=== PATIENT | female | born 1985 | race Caucasian/White ===

== ENCOUNTER 2022-04-29 18:06 | Inpatient (IN) | payer OTHER, SELFPAY ==
[2022-04-29] VITALS (11 sets, daily range): BP systolic 102–136; BP diastolic 43–84; PULSE 85–120; TEMP 36.3–36.6; BMI 38.6
--- OUTSIDE RECORDS SUMMARY | 2022-04-29 18:12 | XMS_ITS | Encounter Summary ---
:1985 Author Care Team Providers Name Role Phone Riya Baer MD Primary Care Provider [phone] Reason for Visit None recorded. Assessment and Plan 1. Chronic hypertension complicating AN D/OR reason for care during ? non-stress test Discussion Note: None recorded.Patient educational handouts: No information available. Plan of Care Reminders Provider Appointments Ob Routine 05/01/2022 9:45AM Domenica Charles MD ? Ob Routine 05/08/2022 9:45AM Domenica Charles MD Lab None recorded. ? ? Referral None recorded. ? ? Procedures None recorded. ? ? Surgeries None recorded. ? ? Imaging Non-stress Test 04/17/2022 [place] Medications Name Start Date ? ? labetalol 100 mg tablet ? TAKE 1 TABLET BY MOUTH TWICE DAILY montelukast 10 mg tablet ? TAKE 1 TABLET BY MOUTH ONCE DAILY Vitamin ? Medications Administered None recorded. Vitals None recorded. Results Lab Results None recorded. Allergies Code Code System Name Reaction Severity Onset NKDA ? ? ? Problems Name Status Onset Date Source ? Anxiety Active 05/25/2021 ? Migraine Active 05/25/2021 ? Essential Hypertension Active 05/25/2021 ? Active 11/02/2021 ? Chronic Hypertension in Obstetric Context Active ? ? Procedures Date Name Performed by ? 06/23/2015 Extraction of [place] Tooth Information n ot available 03/20/2022 US, Obstetric, Biophysical Profile + [facility] Non-stress Test 2015 [address]
--- OUTSIDE RECORDS SUMMARY | 2022-04-29 18:12 | XMS_ITS | Encounter Summary ---
:1985 Author Care Team Providers Name Role Phone Riya Baer MD Primary Care Provider [phone] Reason for Visit None recorded. Assessment and Plan 1. Chronic hypertension complicating AN D/OR reason for care during ? US, obstetric, biophysical profile + non-stress test Discussion Note: None recorded.Patient educational handouts: No information available. Plan of Care Reminders Provider Appointments Ob Routine 05/01/2022 Domenica scott MD 9:45AM ? Ob Routine 05/08/2022 Domenica scott MD 9:45AM Lab None recorded. ? ? Referral None recorded. ? ? Procedures None recorded. ? ? Surgeries None recorded. ? ? Imaging US, Obstetric, Biophysical 04/24/2022 [facility] Profile + Non-stress Test Medications Name Start Date ? ? labetalol [...]
--- OUTSIDE RECORDS SUMMARY | 2022-04-29 18:12 | XMS_ITS | Encounter Summary ---
:1985 Author Care Team Providers Name Role Phone Riya Baer MD Primary Care Provider [phone] Reason for Visit None recorded. Assessment and [...] None recorded. ? ? Imaging Non-stress Test 04/10/2022 [place] Medications Name Start Date ? ? labetalol [...] Performed by ? 06/23/2015 Extraction of [place] Tooth Information n ot available 03/13/2022 US, Obstetric, Follow-up [place] [address] [address]
--- OUTSIDE RECORDS SUMMARY | 2022-04-29 18:12 | XMS_ITS | Encounter Summary ---
:1985 Author Care Team Providers Name Role Phone Riya Baer MD Primary Care Provider [phone] Reason for Visit OB visit OB [id number] EDC 05/13/2022 LMP 08/06/2021 Assessment and Plan Assessment Note Patient is __33_weeks . Discuss ed plan. 1. Routine care Discussion Note: None recorded.Patient educational handouts: No information available. Plan of Care Reminders Provider Appointments Ob Routine 05/01/2022 9:45AM Domenica Charles MD ? Ob Routine 05/08/2022 9:45AM Domenica Charles MD Lab None recorded. ? ? Referral None recorded. ? ? Procedures None recorded. ? ? Surgeries None recorded. ? ? Imaging None recorded. ? ? Medications Name Start Date ? ? labetalol 100 mg tablet ? TAKE 1 TABLET BY MOUTH TWICE DAILY montelukast 10 mg tablet ? TAKE 1 TABLET BY MOUTH ONCE DAILY Vitamin ? Medications Administered None recorded. Vitals Height Weight BMI Blood Pressure 5 ft 3 in 226 lbs 40 kg/m2 107/71 mm[Hg] Results Lab Results None recorded. Allergies Code Code System Name Reaction Severity Onset NKDA ? ? ? Problems Name Status Onset Date Source ? Anxiety Active 05/25/2021 ? Migraine Active 05/25/2021 ? Essential Hypertension Active 05/25/2021 ? Active 11/02/2021 ? Chronic Hypertension in Obstetric Context Active ? ? Procedures Date Name Performed by
--- OUTSIDE RECORDS SUMMARY | 2022-04-29 18:12 | XMS_ITS | Encounter Summary ---
:1985 Author Care Team Providers Name Role Phone Riya Baer MD Primary Care Provider [phone] Reason for Visit OB visit Assessment and Plan 1. Chronic hypertension in obstetric co ntext Discussion Note: None recorded.Patient educational handouts: No [...] BMI Blood Pressure 5 ft 3 in 227 lbs 40.2 kg/m2 116/76 mm[Hg] Results Lab Results None recorded. Allergies Code Code System Name Reaction Severity Onset NKDA ? ? ? Problems Name Status Onset Date Source ? Anxiety Active 05/25/2021 ? Migraine Active 05/25/2021 ? Essential Hypertension Active 05/25/2021 ? Active 11/02/2021 ? Chronic Hypertension in Obstetric Context Active ? ? Procedures Date Name Performed by ? 06/23/2015 Extraction of [place] Tooth Information n ot available 03/27/2022 US, Obstetric, Biophysical Profile + Cindy toro
--- OUTSIDE RECORDS SUMMARY | 2022-04-29 18:12 | XMS_ITS | Encounter Summary ---
:1985 Author Care Team Providers Name Role Phone Riya Baer MD Primary Care Provider [phone] Reason for Visit None recorded. Assessment and [...] None recorded. ? ? Imaging Non-stress Test 04/24/2022 [place] Medications Name Start Date ? ? labetalol [...] Name Performed by ? 06/23/2015 Extraction of [place] Tooth Information n ot available 03/27/2022 US, Obstetric, Biophysical Profile + [facility] Non-stress Test 2015 [address]
--- OUTSIDE RECORDS SUMMARY | 2022-04-29 18:12 | XMS_ITS ---
:1985 Author Care Team Providers Name Role Phone HARIS BATEMAN MD Primary Care Provider [phone] Allergies Code Code System Name Reaction Severity Status Onset NKDA ? Medications Name Status Start Date Stop Date ? ? atorvastatin 20 mg tablet Completed ? 2021 baclofen Completed ? 09/28/2021 baclofen 10 mg tablet Completed ? 11/02/2021 Imitrex Completed ? 09/28/2021 Imitrex 100 mg tablet Completed ? 11/02/2021 labetalol 100 mg tablet Active ? Not avai lable montelukast 10 mg tablet Active ? Not roslyn ilable nortriptyline 25 mg capsule Completed ? 01/2022 TAKE 1 CAPSULE BY MOUTH AT BEDTIME nortriptyline 50 mg capsule Completed ? 10/21 Vitamin Active ? Not available Sprintec (28) 0.25 mg-35 mcg tablet Completed ? 11/02/2021 Problems Name Status Onset Date Source ? Anxiety Active 05/25/2021 ? Migraine Active 05/25/2021 ? Essential Hypertension Active 05/25/2021 ? Active 11/02/2021 ? Chronic Hypertension in Obstetric Context Active ? ? Procedures Date Name Performed by ? 06/23/2015 Extraction of [place] Tooth Information n ot available 11/02/2021 US, Obstetric, Nuchal Translucency Jocelyn jones [address] [place] [address] ([address]) 12/31/2021 US, Obstetric, 2Nd or 3Rd Trimester Irais tobin [address] [place] [address]
--- OUTSIDE RECORDS SUMMARY | 2022-04-29 18:12 | XMS_ITS | Encounter Summary ---
:1985 Author Care Team Providers Name Role Phone Riya Baer MD Primary Care Provider [phone] Reason for Visit None recorded. Assessment and [...] None recorded. ? ? Imaging Non-stress Test 04/03/2022 [place] Medications Name Start Date ? ? labetalol [...] Name Performed by ? 06/23/2015 Extraction of [place] Tooth Information n ot available 03/13/2022 US, Obstetric, Follow-up [place] [address] [address]
--- OUTSIDE RECORDS SUMMARY | 2022-04-29 18:12 | XMS_ITS | Encounter Summary ---
:1985 Author Care Team Providers Name Role Phone Riya Baer MD Primary Care Provider [phone] Reason for Visit None recorded. Assessment and [...] None recorded. ? ? Imaging Non-stress Test 03/27/2022 [place] Medications Name Start Date ? ? labetalol [...] Name Performed by ? 06/23/2015 Extraction of [place] Tooth Information n ot available 03/13/2022 , Obstetric, Follow-up [place] [address] [address]
--- OUTSIDE RECORDS SUMMARY | 2022-04-29 18:12 | XMS_ITS | Encounter Summary ---
:1985 Author Care Team Providers Name Role Phone Riya Baer MD Primary Care Provider [phone] Reason for Visit OB visit Assessment and [...] BMI Blood Pressure 5 ft 3 in 224 lbs 39.7 kg/m2 125/87 mm[Hg] Results Lab Results None recorded. Allergies Code Code System Name Reaction Severity Onset NKDA ? ? ? Problems Name Status Onset Date Source ? Anxiety Active 05/25/2021 ? Migraine Active 05/25/2021 ? Essential Hypertension Active 05/25/2021 ? Active 11/02/2021 ? Chronic Hypertension in Obstetric Context Active ? ? Procedures Date Name Performed by ? 06/23/2015 Extraction of [place] Tooth Information n ot available 03/13/2022 , Obstetric, Follow-up [place]
--- OUTSIDE RECORDS SUMMARY | 2022-04-29 18:12 | XMS_ITS | Encounter Summary ---
:1985 Author Care Team Providers Name Role Phone Riya Baer MD Primary Care Provider [phone] Reason for Visit None recorded. Assessment and Plan 1. Chronic hypertension complicating AN D/OR reason for care during ? US, obstetric, follow-up ? US, obstetric, biophysical profile + non-stress test Discussion Note: None recorded.Patient educational handouts: No information available. Plan of Care Reminders Provider Appointments Ob Routine 05/01/2022 Domenica scott MD 9:45AM ? Ob Routine 05/08/2022 Domenica scott MD 9:45AM Lab None recorded. ? ? Referral None recorded. ? ? Procedures None recorded. ? ? Surgeries None recorded. ? ? Imaging US, Obstetric, Follow-up 04/10/2022 [place] ? US, Obstetric, Biophysical 04/10/2022 [facility]o Profile + Non-stress Test Medications Name Start [...] Active 11/02/2021 ? Chronic Hypertension in Obstetric Cont
--- OUTSIDE RECORDS SUMMARY | 2022-04-29 18:12 | XMS_ITS | Encounter Summary ---
:1985 Author Care Team Providers Name Role Phone Riya Baer MD Primary Care Provider [phone] Reason for Visit None recorded. Assessment and [...] recorded. ? ? Imaging US, Obstetric, Biophysical 03/27/2022 [facility] Profile + Non-stress Test Medications Name Start [...]
--- OUTSIDE RECORDS SUMMARY | 2022-04-29 18:12 | XMS_ITS | Encounter Summary ---
:1985 Author Care Team Providers Name Role Phone Riya Baer MD Primary Care Provider [phone] Reason for Visit None recorded. Assessment and [...] recorded. ? ? Imaging US, Obstetric, Biophysical 04/03/2022 [facility] Profile + Non-stress Test Medications Name Start [...]
--- OUTSIDE RECORDS SUMMARY | 2022-04-29 18:12 | XMS_ITS | Encounter Summary ---
:1985 Author Care Team Providers Name Role Phone Riya Baer MD Primary Care Provider [phone] Reason for Visit OB visit Assessment and Plan 1. Chronic hypertension in obstetric co ntext 2. Routine care Discussion Note: None recorded.Patient educational [...] ft 3 in 227 lbs 40.2 kg/m2 107/72 mm[Hg] Results Lab Results None recorded. Allergies Code Code System Name Reaction Severity Onset NKDA ? ? ? Problems Name Status Onset Date Source ? Anxiety Active 05/25/2021 ? Migraine Active 05/25/2021 ? Essential Hypertension Active 05/25/2021 ? Active 11/02/2021 ? Chronic Hypertension in Obstetric Context Active ? ? Procedures Date Name Performed by ? 06/23/2015 Extraction of [place] Tooth Information n ot available 03/13/2022 US,
--- OUTSIDE RECORDS SUMMARY | 2022-04-29 18:12 | XMS_ITS | Encounter Summary ---
:1985 Author Care Team Providers Name Role Phone Riya Baer MD Primary Care Provider [phone] Reason for Visit None recorded. Assessment and [...] recorded. ? ? Imaging US, Obstetric, Biophysical 04/17/2022 [facility] Profile + [...]
--- OUTSIDE RECORDS SUMMARY | 2022-04-29 18:12 | XMS_ITS | Encounter Summary ---
:1985 Author Care Team Providers Name Role Phone Riya Baer MD Primary Care Provider [phone] Reason for Visit OB visit Assessment and [...] BMI Blood Pressure 5 ft 3 in 228 lbs 40.4 kg/m2 115/75 mm[Hg] Results Lab Results None recorded. Allergies Code Code System Name Reaction Severity Onset NKDA ? ? ? Problems Name Status Onset Date Source ? Anxiety Active 05/25/2021 ? Migraine Active 05/25/2021 ? Essential Hypertension Active 05/25/2021 ? Active 11/02/2021 ? Chronic Hypertension in Obstetric Context Active ? ? Procedures Date Name Performed by ? 06/23/2015 Extraction of [place] Tooth Information n ot available 03/13/2022 , Obstetric, Follow-up [place]
--- OUTSIDE RECORDS SUMMARY | 2022-04-29 18:12 | XMS_ITS | Encounter Summary ---
:1985 Author Care Team Providers Name Role Phone Riya Baer MD Primary Care Provider [phone] Reason for Visit OB visit Assessment and [...] ft 3 in 228 lbs 40.4 kg/m2 107/73 mm[Hg] Results Lab Results None recorded. Allergies Code Code System Name Reaction Severity Onset NKDA ? ? ? Problems Name Status Onset Date Source ? Anxiety Active 05/25/2021 ? Migraine Active 05/25/2021 ? Essential Hypertension Active 05/25/2021 ? Active 11/02/2021 ? Chronic Hypertension in Obstetric Context Active ? ? Procedures Date Name Performed by ? 06/23/2015 Extraction of [place] Tooth Information n ot available 03/20/2022 US, Obstetric, Biophysical Profile + [facility] toro
--- OUTSIDE RECORDS SUMMARY | 2022-04-29 18:13 | XMS_ITS | Encounter Summary ---
:1985 Author Care Team Providers Name Role Phone Riya Baer MD Primary Care Provider [phone] Reason for Visit None recorded. Assessment and [...] None recorded. ? ? Imaging Non-stress Test 03/20/2022 [place] Medications Name Start Date ? ? labetalol [...] Name Performed by ? 06/23/2015 Extraction of [place] Tooth Information n ot available 03/13/2022 US, Obstetric, Follow-up [place] [address] [address]
--- OUTSIDE RECORDS SUMMARY | 2022-04-29 18:13 | XMS_ITS | Encounter Summary ---
:1985 Author Care Team Providers Name Role Phone Riya Baer MD Primary Care Provider [phone] Reason for Visit None recorded. Assessment and Plan 1. Chronic hypertension complicating AN D/OR reason for care during ? US, obstetric, follow-up Discussion Note: None recorded.Patient educational handouts: No information available. Plan of Care Reminders Provider Appointments Ob Routine 05/01/2022 9:45AM Domenica Charles MD ? Ob Routine 05/08/2022 9:45AM Domenica Charles MD Lab None recorded. ? ? Referral None recorded. ? ? Procedures None recorded. ? ? Surgeries None recorded. ? ? Imaging US, Obstetric, Follow-up 03/13/2022 J[facility] j[place] Medications Name Start Date ? ? labetalol [...] Procedures Date Name Performed by ? 06/23/2015 Ex
--- OUTSIDE RECORDS SUMMARY | 2022-04-29 18:13 | XMS_ITS | Encounter Summary ---
:1985 Author Care Team Providers Name Role Phone Riya Baer MD Primary Care Provider [phone] Reason for Visit None recorded. Assessment and [...] recorded. ? ? Imaging US, Obstetric, Follow-up 02/15/2022 Joc[facility] j[place] Medications Name Start Date ? [...] Procedures Date Name Performed by ? 06/23/2015 Extr
--- OUTSIDE RECORDS SUMMARY | 2022-04-29 18:13 | XMS_ITS | Encounter Summary ---
:1985 Author Care Team Providers Name Role Phone Riya Baer MD Primary Care Provider [phone] Reason for Visit OB visit Assessment and Plan 1. Routine care 2. Chronic hypertension in obstetric co ntext Discussion [...] BMI Blood Pressure 5 ft 3 in 211 lbs 37.4 kg/m2 123/85 mm[Hg] Results Lab Results None recorded. Allergies Code Code System Name Reaction Severity Onset NKDA ? ? ? Problems Name Status Onset Date Source ? Anxiety Active 05/25/2021 ? Migraine Active 05/25/2021 ? Essential Hypertension Active 05/25/2021 ? Active 11/02/2021 ? Chronic Hypertension in Obstetric Context Active ? ? Procedures Date Name Performed by ? 06/23/2015 Extraction of [place] Tooth Information n ot available Vaccine List None recorded.
--- OUTSIDE RECORDS SUMMARY | 2022-04-29 18:13 | XMS_ITS | Encounter Summary ---
:1985 Author Care Team Providers Name Role Phone Riya Baer MD Primary Care Provider [phone] Reason for Visit None recorded. Assessment and [...] recorded. ? ? Imaging US, Obstetric, Biophysical 03/20/2022 [facility] Profile + Non-stress Test Medications Name Start [...]
--- OUTSIDE RECORDS SUMMARY | 2022-04-29 18:13 | XMS_ITS | Encounter Summary ---
:1985 Author Care Team Providers Name Role Phone Riya Baer MD Primary Care Provider [phone] Reason for Visit OB visit Assessment and [...] BMI Blood Pressure 5 ft 3 in 216 lbs 38.3 kg/m2 116/78 mm[Hg] Results Lab Results None recorded. Allergies Code Code System Name Reaction Severity Onset NKDA ? ? ? Problems Name Status Onset Date Source ? Anxiety Active 05/25/2021 ? Migraine Active 05/25/2021 ? Essential Hypertension Active 05/25/2021 ? Active 11/02/2021 ? Chronic Hypertension in Obstetric Context Active ? ? Procedures Date Name Performed by ? 06/23/2015 Extraction of [place] Tooth Information n ot available 02/15/2022 US, O
--- OUTSIDE RECORDS SUMMARY | 2022-04-29 18:13 | XMS_ITS | Encounter Summary ---
:1985 Author Care Team Providers Name Role Phone Riya Baer MD Primary Care Provider [phone] Reason for Visit OB visit Assessment and [...] BMI Blood Pressure 5 ft 3 in 219 lbs 38.8 kg/m2 122/86 mm[Hg] Results Lab Results None recorded. Allergies Code Code System Name Reaction Severity Onset NKDA ? ? ? Problems Name Status Onset Date Source ? Anxiety Active 05/25/2021 ? Migraine Active 05/25/2021 ? Essential Hypertension Active 05/25/2021 ? Active 11/02/2021 ? Chronic Hypertension in Obstetric Context Active ? ? Procedures Date Name Performed by ? 06/23/2015 Extraction of [place] Tooth Information n ot available 02/15/2022 US,
--- OUTSIDE RECORDS SUMMARY | 2022-04-29 18:13 | XMS_ITS | Encounter Summary ---
:1985 Author Care Team Providers Name Role Phone Riya Baer MD Primary Care Provider [phone] Reason for Visit OB visit OB [id number] EDC 05/13/2022 LMP Assessment and Plan Assessment Note Patient is _31__weeks . Discuss ed plan. 1. Routine care [...] BMI Blood Pressure 5 ft 3 in 221 lbs 39.1 kg/m2 109/70 mm[Hg] Results Lab Results None recorded. Allergies Code Code System Name Reaction Severity Onset NKDA ? ? ? Problems Name Status Onset Date Source ? Anxiety Active 05/25/2021 ? Migraine Active 05/25/2021 ? Essential Hypertension Active 05/25/2021 ? Active 11/02/2021 ? Chronic Hypertension in Obstetric Context Active ? ? Procedures Date Name Performed by ?
--- NOTE | 2022-04-29 18:45 | LDADM ---
This patient, Amy Mcclendon, was admitted to Labor/Delivery/Recovery 108 on 04/29/22 at 18:06. Plans for labor, pain management and were discussed with patient. Patient/family oriented to hospital policies and general routines including ID bracelet, bed and alarms, visiting hours, pain management, procedures, bathroom and other care routines, personal items, smoking policy, room service/diet and guest tray routines, infant security routines, and visiting hours. Patient/Family are encouraged to report perceived risks to care and to ask questions if they do not understand what they are told or what they should do. See OBIX for further documentation.
--- NOTE | 2022-04-29 19:32 | WPDANESEPP ---
Anes - Eval Pre Procedure Procedure: labor epidural Date/Time: 04/29/22 19:32 Surgeon: shereen Preop Diagnosis: pain during labor Pre Op Diagnosis: Induction of Labor Patient Data Age: 36 Gender: F Height: 1.6 m Weight: 99 kg Last Vital Signs Pulse 96 04/29/22 19:31 BP 119/72 04/29/22 19:31 O2 Del Method Room Air 04/29/22 18:44 Allergies Allergy/AdvReac Type Severity Reaction Status Date / Time No Known Allergies Allergy Verified 04/12/22 12:36 Home Medications Medication Instructions Recorded Confirmed Type aspirin 81 mg tablet,delayed 81 mg PO DAILY 04/12/22 04/12/22 History release (Donna Low Dose Aspirin) ferrous sulfate 142 mg (45 mg 142 mg PO DAILY 04/12/22 04/12/22 History iron) tablet,extended release labetalol 100 mg tablet 100 mg PO Q12H 04/12/22 04/12/22 History montelukast 10 mg tablet 10 mg PO DAILY 04/12/22 04/12/22 History prenat.vits,venkatesh,wbz-dvnp-vjezc 1 tablet PO DAILY 04/12/22 04/12/22 History Patient hx anesthesia problems: none Family hx anesthesia problems: none Results Review: All pre-operative results and documents have been reviewed as part of the pre-operative evaluation. [facility] Past Medical History Medical History (Updated 04/29/22 @ 19:34 by Ruth Ann Loredo CRNA) HTN (hypertension) IUP (intrauterine ), incidental Obesity Family History Family History (Updated 04/12/22 @ 12:44 by Lola Becerra RN) Mother Borderline diabetes Hypertension High cholesterol Social History Social History Smoking status: Former smoker Substance use: never Has the Lack of Transportation Kept You From Medical Appointments or From Getting Medications?: No Within the Past 12 Months, Were You Worried Whether Your Food Would Run Out Before You Got Money to Buy More?: Never True What is Your Housing Situation Today?: I Have Housing Are You Worried That in the Next 2 Months, You May Not Have Your Own Housing to Live In?: No Do You Have Trouble Paying Your Heating Or Electricity Bill?: No Do You Have Trouble Paying For Medicines?: No Are You Currently Unemployed and Looking for Work?: No Highest Level of Education Completed: High School Diploma/GED Do You Have Trouble With Childcare or the Care of a Family Member?: No Spiritual care concerns: No Exam Day of Procedure 04/29/22 19:32
[2022-04-29 19:38] LABS: Basophils Absolute Auto 0.1 K/mm3 (0.0-0.1); Basophils Percent Auto 0.4 % (0.2-1.2); Eosinophils Absolute Auto 0.2 K/mm3 (0-0.3); Eosinophils Percent Auto 1.4 % (0-4.4); Hemoglobin 11.7 g/dL (12.0-15.0); Immature Granulocyte Absolute 0.35 K/mm3 (0.00-0.031); Immature Granulocyte Percent A 2.6 % (0-0.5); Lymphocytes Absolute Auto 1.57 K/mm3 (0.9-3.2); Lymphocytes Percent Auto 11.5 % (18.3-44.2); Mean Corpuscular HGB Conc 32.5 g/dl (32-36); Mean Corpuscular Hemoglobin 29.2 pg (26-34); Mean Corpuscular Volume 89.8 fl (80-100); Mean Platelet Volume 11.4 fl (7.4-10.4); Monocytes Absolute Auto 1.1 K/mm3 (0.1-0.6); Neutrophils Absolute Auto 10.4 K/mm3 (1.3-6.7); Neutrophils Percent Auto 76.1 % (45.5-73.1); Platelet Count Result 201 k/mm3 (150-375); Red Blood Count 4.01 M/mm3 (4.2-5.4); Red Cell Distribution Width 13.5 % (11.5-14.5); White Blood Count 13.6 K/mm3 (4.5-10.0)
[2022-04-29] MEDS: miSOPROStol 25 MCG TABLET VAGINAL (19:50)
[2022-04-30] VITALS (54 sets, daily range): BP systolic 90–136; BP diastolic 53–99; PULSE 80–166; RESP 18; TEMP 36.3–37.1; O2SAT 97–99
[2022-04-30] MEDS: LACTATED RINGERS 1,000 ML 125 ML IV CONT ×2 (00:50→04:40)
[2022-04-30] MEDS: OXYTOCIN 30 UNITS/NS 500 ML 30 UNITS/500 ML BAG IV CONT (00:50)
--- NOTE | 2022-04-30 06:56 | PM.IMHP ---
H&P: HPI History of Present Illness Date/Time: 04/30/22 06:56 Chief Complaint: induction of labor Narrative: Amy is a 36yo at 38.1 for IOL cHTN on labetalol. Last 10yr ago, baby adopted out. otherwise uncomplicated. BPs well controlled. on iron. Review of Systems Review of Systems: All systems reviewed & are unremarkable except as noted in HPI and below PMFSH Past Medical History Medical History (Updated 04/30/22 @ 06:57 by Domenica Charles MD) HTN (hypertension) IUP (intrauterine ), incidental Obesity Family History Family History (Updated 04/12/22 @ 12:44 by Lola Becerra RN) Mother Borderline diabetes Hypertension High cholesterol Social History Social History Smoking status: Former smoker Substance use: never Has the Lack of Transportation Kept You From Medical Appointments or From Getting Medications?: No Within the Past 12 Months, Were You Worried Whether Your Food Would Run Out Before You Got Money to Buy More?: Never True What is Your Housing Situation Today?: I Have Housing Are You Worried That in the Next 2 Months, You May Not Have Your Own Housing to Live In?: No Do You Have Trouble Paying Your Heating Or Electricity Bill?: No Do You Have Trouble Paying For Medicines?: No Are You Currently Unemployed and Looking for Work?: No Highest Level of Education Completed: High School Diploma/GED Do You Have Trouble With Childcare or the Care of a Family Member?: No Spiritual care concerns: No Meds Home Medications and Allergies Home Medications Medication Instructions Recorded Confirmed Type aspirin 81 mg tablet,delayed 81 mg PO DAILY 04/12/22 04/12/22 History release (Donna Low Dose Aspirin) ferrous sulfate 142 mg (45 mg 142 mg PO DAILY 04/12/22 04/12/22 History iron) tablet,extended release labetalol 100 mg tablet 100 mg PO Q12H 04/12/22 04/12/22 History montelukast 10 mg tablet 10 mg PO DAILY 04/12/22 04/12/22 History prenat.vits,venkatesh,agu-elfo-smpdt 1 tablet PO DAILY 04/12/22 04/12/22 History Allergies Allergy/AdvReac Type Severity Reaction Status Date / Time No Known Allergies Allergy Verified 04/12/22 12:36 Vital Signs Vital Signs - 24 hr 04/29/22 18:21 11/07/22 19:31 04/29/22 18:23 Temperature 97.9 F Pulse Rate 120 H 96 Blood Pressure 136/84 119/72 Oxygen Delivery 04/29/22 20:01 04/29/22 20:30 04/29/22 21:00 Temperature Pulse Rate 96 98 96 Blood Pressure 115/68 118/81 113/74 Oxygen Delivery 04/29/22 21:31 04/29/22 22:00 04/29/22 22:30 Temperature 97.4 F L Pulse Rate 90 92 89 Blood Pressure 102/43 L 111/70 111/65 Oxygen Delivery 04/29/22 23:01 04/29/22 23:31 04/30/22 00:01 Temperature Pulse Rate 91 85 87 Blood Pressure 115/67 105/68 103/65 Oxygen Delivery 04/30/22 00:30 04/30/22 01:01 04/30/22 01:30 Temperature 97.3 F L Pulse Rate 92 96 84 Blood Pressure 114/75 108/62 117/72 Oxygen Delivery 04/30/22 02:00 04/30/22 02:31 04/30/22 03:01 Temperature Pulse Rate 83 83 80 Blood Pressure 109/73 110/68 107/72 Oxygen Delivery 04/30/22 03:31 04/30/22 04:01 04/30/22 04:41 Temperature Pulse Rate 80 80 85 Blood Pressure 103/69 110/70 116/73 Oxygen Delivery 04/30/22 04:30 04/30/22 05:00 04/30/22 05:30 Temperature 97.5 F L Pulse Rate 80 86 Blood Pressure 111/76 115/69 Oxygen Delivery 04/30/22 06:00 04/30/22 06:31 04/29/22 18:44 Temperature Pulse Rate 86 80 Blood Pressure 120/79 110/69 Oxygen Delivery Room Air Exam Const: General: no acute distress Resp: Effort & Inspection: normal respiratory effort Auscultation: clear to auscultation bilaterally Cardio: Rate: regular rate Rhythm: regular rhythm GI: GI Palp: Yes Soft to palpation Extrem: General: normal to inspection H&P: Results Labs Labs: Short CBC 04/29/22 Range/Units 18:53 WBC 13.6 H (4.5-10.0) K/mm3 Hgb 11.7 L
--- NOTE | 2022-04-30 15:11 | PM.OBPRVD ---
OB - Delivery Note Procedure Delivery date: 04/30/22 Procedure: Events: Chronic Hypertension Induction method: AROM, Per Misoprostol Protocol and Per Pitocin Protocol Delivery monitor: External FHT and Internal Uterine Route of delivery: Laceration Description: Perineal - 2nd Degree Delivery repair: vicryl Quantitative Blood Loss (ml): 130 Anesthesia type: None Disposition: Floor Narrative: With adequate expulsive efforts by the mother, the baby's head was delivered straight OP. The baby's anterior shoulder was delivered under the pubic symphysis without difficulty. The posterior shoulder and the rest of the baby delivered without difficulty. The was placed on the mothers chest and suctioned and stimulated. The cord was clamped and cut after 30 seconds. Mother and baby both stable. [place] Baby Date of : 04/30/22 Time of : 14:42 Weeks of gestation at delivery: 38 gender: Female Weight (pounds): 6 Weight (ounces): 7 presentation: vertex Placenta delivery description: Spontaneous Cord Vessel Description: 3 Vessels, Nuchal Cord and Delayed Cord Clamping score one minute: 8 score five minutes: 9
[2022-04-30] MEDS: IBUPROFEN 600 MG TABLET PO ×2 (16:16→22:17)
--- NOTE | 2022-04-30 17:27 | OBPPTRN ---
1727 Patient transferred to post room #290 via W/C. Support person present. Oriented to unit, room, information board, rooming in, admission packet and security measures. Patient verbalizes understanding.
[2022-04-30] MEDS: ACETAMINOPHEN 325 MG TABLET 650 MG PO (18:54)
[2022-04-30] MEDS: LANOLIN (LANSINOH) 7.5 GM CREAM 1 APPLIC TOPICAL (19:00)
[2022-04-30] MEDS: DIBUCAINE 1% OINTMENT 30 GM TUBE 1 APPLIC TOPICAL (19:00)
[2022-05-01 00:05] VITALS: BP 115/76; PULSE 90; RESP 16; TEMP 36.7; O2SAT 98
[2022-05-01] MEDS: ACETAMINOPHEN 325 MG TABLET 650 MG PO ×3 (03:23→19:23)
[2022-05-01 03:30] VITALS: BP 111/77; PULSE 88; RESP 16; TEMP 36.6; O2SAT 96
[2022-05-01 05:14] LABS: Hematocrit 33.7 % (37.0-47.0)
--- NOTE | 2022-05-01 07:04 | PM.OBPNVD ---
OB - PN: Subj Subjective Date/time seen: 05/01/22 07:04 Patient comments: no complaints and pain well controlled baby status: doing well and nursing well [place] feeding status: exclusively breast feeding Narrative: BPS 110s/70s did not restart labetalol. OB - PN: Obj Data Labs CBC & Chem 7: 05/01/22 03:30 Labs: Laboratory Results - last 24 hr 05/01/22 03:30 Hgb 11.0 L Hct 33.7 L OB - PN A/P Plan day: 1 Plan: routine care Comments: did not restart labetalol with BPs in very normal range. will check BPs at home a couple times per week and call if high. home tomorrow. Time Spent With Patient Time: Total time spent is greater than 50% in coordination of care (as documented) at patient's floor/unit and/or counseling patient: Time with patient: less than 15 minutes Exam Narrative: NAD abdomen soft, nontender, fundus firm below the umbilicus Extremities nontender, 1+ edema
[2022-05-01 09:00] VITALS: BP 126/87; PULSE 90; TEMP 36.6; O2SAT 97
[2022-05-01] MEDS: MULTIVIT/MIN/PREN/FOL AC/IRON TABLET 1 TAB PO (09:00)
[2022-05-01] MEDS: DOCUSATE SODIUM 100 MG CAPSULE PO ×2 (09:01→16:48)
[2022-05-01] MEDS: IBUPROFEN 600 MG TABLET PO ×3 (09:01→23:35)
[2022-05-01 11:35] VITALS: BP 98/59; PULSE 99; RESP 16; TEMP 37.4; O2SAT 98
--- NOTE | 2022-05-01 12:20 | PC.NURSE ---
[id number] Introductions were made, then consulted with patient to assess needs related to . Mother led the conversation with her?plans to feed?her infant and the?experience so far. Resources provided for inpatient and outpatient services using a resource guide and mom/baby guide. Mother voiced understanding of information and requests assistance. Mother works well with her with encouragement and education. Encouraged understanding of the benefits of skin to skin (unwrapping and placing vertically on her chest), responsive feeding and how to watch for early feeding signs, frequency of feeding on demand about every 8-12 times in 24 hours (every 2-3 hours), milk production, duration of feeding, signs of adequate intake/output and how to record on the feeding sheet. Reviewed positioning and ear, shoulder, hip alignment, supporting the breast, asymmetrical latch (off-center), and leading with the chin with a big open side gape. latched optimally to the right breast in football position. Education given to mother of how to visualize suck/swallow ratios and drinking at the breast. Infant was able to maintain latch without discomfort to mother, however, infant was detached due to latch less than 90 degrees and the nipple is seen just inside the mouth. Nipple care reviewed with optimal latch and good positioning. Attempted to latch infant to the left breast using football positioning and mother holding the breast to encouraged the nipple to [place]. Mother states the latch doesn't hurt. Infant detached due to the latch less than 90 degrees and the nipple is misshaped. Infant's tongue is pulled in the middle when it is lifted up. After practicing does stretch the tongue out over the gumline at time. Reviewed good handwashing when or touching the breast/nipples to prevent infection. Resources used to facilitate learning were used with the tool and mom/baby guide. Mother voiced understanding of responsive feedings, stimulating with skin to skin, hand expressed colostrum, massage touch, talking to to encourage if it has been 2 -3 hours since the start of the last , to call if does not latch or there is discomfort with . Dr. Beyer enters the room for an infant assessment. Reported to the primary RN. [id number] Consulted with parent on feeding and initiating pumping related to infant ineffectively feeding at times. Mother works well with her practicing latching optimally to the breast. When infant becomes tired and lets go of the breast or is unable to maintain latching, then mother removes infant from the breast and attempts a better latch. Mother states the latching doesn't hurt. When comes off of the breast the nipple is less misshaped after practicing more. Breast pump provided due to ineffective feeding. Instructions given on cleaning, care, usage, that there should be no pain, pumping schedule for milk production, collection, storage of human milk, and the risk and benefits. Parents are encouraged to record pumping schedule on the feeding sheet. Patient was assessed for correct placement, flange size, to pump for comfort and nipple stretching/stimulation for adequate milk production every 3 hours (8 times in 24 hours). Discussed the risk and benefits of using a nipple shield, how to know if is latched well, getting enough using the pie demonstration, and encouraged practicing stretching infant's frenulum since there would not be an ENT coming to the hospital this visit to perform a frenulectomy. Primary RN has consulted Dr. Homer Manzano MD. Fathers questions and concerns were addressed and they were encourage to ask questions if they needed clarity. Parents voiced understanding of the education shared along with mom and baby guide for additional resource information. Mother continues to work well with her on effectively
[2022-05-01 16:17] LABS: Rapid Plasma Reagin Non-Reactive (NonReactive)
[2022-05-01 19:10] VITALS: BP 105/63; PULSE 92; RESP 18; TEMP 36.7; O2SAT 96
[2022-05-02] MEDS: ACETAMINOPHEN 325 MG TABLET 650 MG PO (03:17)
--- NOTE | 2022-05-02 04:14 | PC.NURSE ---
Attempted to assist mother with 0315 feeding again. Mother seems to be having a difficult time positioning independently using football or cross cradle hold on the the right breast. Left nipple remains sore and she declines wanting to attempt using it at this time. Mother states it is hurting her wrist to support infant's head. Provided more pillows to aide in support. showing feeding cues and is having a difficult time achieving an asymmetrical latch. After about 15 minutes of attempting, mother requesting to supplement infant with formula via syringe again. Mother pumped x 15 minutes which resulted in about 2 drops of colostrum in flanges. Encouraged hand expression prior to initiating pumping and after pumping session complete to promote supply. noted to curl tongue around syringe and is unable to thrust tongue past the gumline.
[2022-05-02 07:25] VITALS: BP 117/66; PULSE 93; RESP 16; TEMP 37.4; O2SAT 98
[2022-05-02 08:00] VITALS: PULSE 93; RESP 16; O2SAT 98
--- NOTE | 2022-05-02 08:18 | PM.OBPNVD ---
OB - PN: Subj Subjective Date/time seen: 05/02/22 08:18 Patient comments: no complaints, pain well controlled and tolerating diet OB - PN: Obj Data Labs CBC & Chem 7: 05/01/22 03:30 Labs: Laboratory Results - last 24 hr 04/29/22 18:54 RPR Non-reactive OB - PN A/P Plan day: 2 Plan: routine care and discharge home Time Spent With Patient Time: Total time spent is greater than 50% in coordination of care (as documented) at patient's floor/unit and/or counseling patient: Exam Const: General: comfortable and no acute distress Resp: Effort & Inspection: normal respiratory effort Auscultation: no rales, no rhonchi and no wheezes Cardio: Rate: regular rate Heart sounds: no click, no murmurs and no rubs GI: GI Palp: Yes Soft to palpation and No Tenderness to palpation present (GI) Auscultation: normal bowel sounds Extrem: General: normal to inspection, no pedal edema and no calf tenderness
--- NOTE | 2022-05-02 08:21 | PM.OBDSVD ---
DS: Admitting Diagnosis Discharge Date 05/02/22 Admitting Diagnosis term OB - DS: Summary OB Procedures : NST and Ultrasound OB Procedures Intrapartum: Spontaneous Vag Delivery OB Procedures: : None Time Spent with Patient Time attestation: Total time spent providing and/or coordinating discharge services: DS: Data Data Completed and Pending Labs on day of discharge: Labs from last 24 hours 04/29/22 18:54 RPR Non-reactive Discharge Plan Discharge Discharging Clinician: Colt Garcia Patient Disposition: Home, Self-Care Activity: pelvic rest Diet: regular Patient Instructions: Antibiotic Form Stand Alone Forms: General Discharge Information Follow-up/Referrals: Colt Garcia MD [Physician] - Discharge Medications: Continued aspirin [Donna Low Dose Aspirin] 81 mg Tablet,Delayed Release (Dr/Ec) 81 mg PO DAILY montelukast 10 mg Tablet 10 mg PO DAILY labetalol 100 mg Tablet 100 mg PO Q12H #2 Tablet 1 tablet PO DAILY ferrous sulfate 142 mg (45 mg iron) Tablet Extended Release 142 mg PO DAILY Date of admission: 04/29/22 18:06 Primary Care Provider: Riya Baer MD Admitting Provider: Domenica Charles Attending physician on admission: Domenica Charles Condition: Stable
[2022-05-02] MEDS: MULTIVIT/MIN/PREN/FOL AC/IRON TABLET 1 TAB PO (10:00)
[2022-05-02] MEDS: DOCUSATE SODIUM 100 MG CAPSULE PO (10:00)
--- NOTE | 2022-05-02 10:35 | PC.NURSE ---
[id number] Father led the conversation and does the majority of the talking reviewing mothers experience with , plan to feed their infant so far and what they will do at home. Primary RN checked infants blood sugar (resulted at 58 mg/dl) and per Dr's order/policy requires supplementation. Reminded parents to use good handwashing technique to prevent infection. Mother is feeding appropriately for growth of infant and understands stimulating to eat and requires encouragement and reviewed the demonstration of how to wake infant to feed. RN entered the room after mother had completed a pumping session with 3 drops of colostrum collected on a spoon. Reportedly, has had no effective feedings in the last 24 hours meets the outcomes for weight, output and jaundice at this time. Mother states she is confident to continue attempting to breastfeed, pumping her breast to stimulate a milk production, and now supplementing with formula as needed until her milk comes to full volume. Mother's choice of supplementing was with a syringe. Father of has many questions and concerns that are addressed and offered more clarifying questions if needed. Mother voiced that pumping was not comfortable even with turning the pumping to level 1. Nipple was measured and mother was encouraged to call for an RN to assess pump flange fit related to her nipples have changed in size with the discomfort with poor latches with . Mother gives verbal consent to being given formula due to a low blood sugar and states that is the way to go at this time . Parents plan on going to see an ENT today for assessment and possible frenulectomy. Parents are prepared to feed infant at home or when to call for assistance and denies any additional assistance or education at this time. After had two diaper changes for voids, stool, and syringe fed 15mls of formula, then education was reinforced of milk production, transition of milk, signs of adequate intake, prevention/relief of engorgement, responsive after visualizing feeding cues, the different methods of stimulating to breastfeed 2-3 hours after the start of the last feeding, community resources, medication information reviewed per [facility] and when to call a provider using the resource of the mom and baby guide/[facility] website. Parents voiced understanding of the education shared. Reported to the primary RN.
--- NOTE | 2022-05-02 11:50 | PC.NURSE ---
Patient viewed the discharge video Mother & Baby Care, The First Two Weeks . Patient was given the opportunity and encouraged to ask questions. Patient verbalized understanding of information shared and has been given the mother/baby guide for home reference.
--- NOTE | 2022-05-02 14:30 | PC.NURSE ---
1229 - Father led the conversation with feeding their . Parents wish to syringe feed and RN recommends paced bottle feeding since infant isn't latching and more supplemental feedings are required related to a low blood sugar earlier. has had supplemental feedings in the last 24 hours meets the outcomes for weight, output and jaundice at this time. Parents state they are prepared to continue attempting , pumping her breast for a milk supply, and supplementing their at home, when to call for assistance (referred to the mom/baby guide) and will be discharge to home to meet the ENT for an appt today. Reinforced understanding of milk production, transition of milk, signs of adequate intake, prevention/relief of engorgement, responsive after visualizing feeding cues, the different methods of stimulating infant to breastfeed 2-3 hours after the start of the last feeding, community resources, medication information reviewed per [employer] and when to call a provider using the resource of the mom and baby guide/[facility] website. Parents voiced understanding of the education shared. Reported to the primary RN.
[2022-05-03 11:39] VITALS: BP 131/90; PULSE 88; RESP 20; TEMP 36.6; O2SAT 100
== END 2022-05-02 13:43 | disposition home or self-care (01) | DRG 807 ==
LOC: ANHOB2 05-02 12:30 → ANHLDR 05-06 07:42 → ANHOB2 05-06 07:42
PROVIDERS: Admitting Provider Obstetrics & Gynecology; Visit Provider Obstetrics & Gynecology
DX: O10.92 Unspecified pre-existing hypertension complicating childbirth (principal); Z37.0 Single live birth; Z3A.38 38 weeks gestation of pregnancy; O70.1 Second degree perineal laceration during delivery; O69.81X0 Labor and delivery complicated by cord around neck, without compression, not applicable or unspecified
CPT/HCPCS: 36415; 85014; 85018; 85025; 86592; 86850; 86900; 86901; A9270; J2590; J7120

== ENCOUNTER 2024-07-14 00:04 | Inpatient (IN) | payer OTHER, SELFPAY ==
[2024-07-14] VITALS (114 sets, daily range): BP systolic 100–145; BP diastolic 57–94; PULSE 62–105; RESP 14–18; TEMP 36.2–37; O2SAT 94–100; BMI 40.8
--- NOTE | 2024-07-14 00:41 | LDADM ---
This patient, Amy Mcclendon, was admitted to Labor/Delivery/Recovery 104 on 07/14/24 at 00:04. Plans for labor, pain management and were discussed with patient. Patient/family oriented to hospital policies and general routines including ID bracelet, bed and alarms, visiting hours, pain management, procedures, bathroom and other care routines, personal items, smoking policy, room service/diet and guest tray routines, security routines, and visiting hours. Patient/Family are encouraged to report perceived risks to care and to ask questions if they do not understand what they are told or what they should do. See [facility] for further documentation.
[2024-07-14 00:45] LABS: Basophils Absolute Auto 0.1 K/mm3 (0.0-0.1); Basophils Percent Auto 0.5 % (0.2-1.2); Eosinophils Absolute Auto 0.2 K/mm3 (0-0.3); Eosinophils Percent Auto 1.5 % (0-4.4); Hematocrit 36.8 % (37.0-47.0); Hemoglobin 12.3 g/dL (12.0-15.0); Immature Granulocyte Absolute 0.11 K/mm3 (0.00-0.031); Lymphocytes Absolute Auto 1.94 K/mm3 (0.9-3.2); Lymphocytes Percent Auto 17.5 % (18.3-44.2); Mean Corpuscular HGB Conc 33.4 g/dl (32-36); Mean Corpuscular Hemoglobin 29.8 pg (26-34); Mean Corpuscular Volume 89.1 fl (80-100); Mean Platelet Volume 12.1 fl (7.4-10.4); Monocytes Absolute Auto 0.9 K/mm3 (0.1-0.6); Neutrophils Absolute Auto 7.9 K/mm3 (1.3-6.7); Neutrophils Percent Auto 71.5 % (45.5-73.1); Platelet Count Result 188 k/mm3 (150-375); Red Blood Count 4.13 M/mm3 (4.2-5.4); Red Cell Distribution Width 13.2 % (11.5-14.5); White Blood Count 11.1 K/mm3 (4.5-10.0)
[2024-07-14] MEDS: miSOPROStol 25 MCG TABLET 50 MCG BUCCAL (01:02)
[2024-07-14 01:37] LABS: Rapid Plasma Reagin Non-Reactive (NonReactive)
[2024-07-14 01:38] LABS: HIV 1/2 Ab P24 Ag Result Negative (Negative)
--- NOTE | 2024-07-14 02:50 | WPDANESEPP ---
Anes - Eval Pre Procedure Procedure: Labor epidural Date/Time: 07/14/24 02:50 Surgeon: Rico Preop Diagnosis: Abdominal pain with contractions Pre Op Diagnosis: Induction of Labor Patient Data Age: 39 Gender: F Height: 1.6 m Weight: 104.5 kg Last Vital Signs Temp 97.7 F 07/14/24 00:25 Pulse 76 07/14/24 02:30 BP 127/87 07/14/24 02:30 Pulse Ox 97 07/14/24 02:50 O2 Del Method Room Air 07/14/24 00:39 Allergies Allergy/AdvReac Type Severity Reaction Status Date / Time No Known Allergies Allergy Verified 07/14/24 01:20 Home Medications ?Medication ?Instructions ?Recorded ?Confirmed ?Type aspirin 81 mg tablet,delayed 81 mg PO DAILY 04/12/22 07/03/24 History release (Donna Low Dose Aspirin) ferrous sulfate 142 mg (45 mg 142 mg PO DAILY 04/12/22 07/14/24 History iron) tablet,extended release montelukast 10 mg tablet 10 mg PO DAILY 04/12/22 07/14/24 History prenat.vits,venkatesh,pbv-dkez-garyv 1 tablet PO DAILY 04/12/22 07/14/24 History Laboratory Tests 07/14/24 00:18 WBC 11.1 H K/mm3 (4.5-10.0) RBC 4.13 L M/mm3 (4.2-5.4) Hgb 12.3 g/dL (12.0-15.0) Hct 36.8 L % (37.0-47.0) MCV 89.1 fl (80-100) MCH 29.8 pg (26-34) MCHC 33.4 g/dl (32-36) RDW 13.2 % (11.5-14.5) Plt Count 188 k/mm3 (150-375) MPV 12.1 H fl (7.4-10.4) Immature Gran % (Auto) 1.0 H % (0-0.5) Neut % (Auto) 71.5 % (45.5-73.1) Lymph % (Auto) 17.5 L % (18.3-44.2) Yates % (Auto) 8.0 % (2.6-8.5) Eos % (Auto) 1.5 % (0-4.4) Baso % (Auto) 0.5 % (0.2-1.2) Lymph # (Auto) 1.94 K/mm3 (0.9-3.2) Yates # (Auto) 0.9 H K/mm3 (0.1-0.6) Eos # (Auto) 0.2 K/mm3 (0-0.3) Baso # (Auto) 0.1 K/mm3 (0.0-0.1) Abs Immat Gran (auto) 0.11 H K/mm3 (0.00-0.031) Absolute Neuts (auto) 7.9 H K/mm3 (1.3-6.7) Absolute Nucleated RBC 0.000 K/mm3 (0.0-0.012) Nucleated RBC % 0.0 % (0.0-0.2) RPR Non-reactive (NonReactive) HIV 1&2 Ab/P24 Ag 4thGn Negative (Negative) Blood Type O Positive Antibody Screen Negative : gestational age HCG: positive Patient hx anesthesia problems: none Family hx anesthesia problems: none Results Review: All pre-operative results and documents have been reviewed as part of the pre-operative evaluation. [facility] Past Medical History Medical History Morbid obesity Obesity HTN (hypertension) IUP (intrauterine ), incidental Family History Family History Mother Borderline diabetes Hypertension High cholesterol Social History Social History Smoking status: Never smoker Substance use: never Do You Feel Safe in your Home?: Yes Lack of Transportation: No Lack of Food: Never True Current Housing: I Have Housing Concerned About Future Housing: No Difficulty Paying Gas/Electric Bills: No Difficulty Paying for Meds: No Currently Unemployed: No Education: High School Diploma/GED Difficulty w/ Childcare or Family Care: No Spiritual care concerns: No Exam Day of Procedure 07/14/24 02:50 Patient weight: morbidly obese
[2024-07-14] MEDS: OXYTOCIN 30 UNITS/NS 500 ML 30 UNITS/500 ML BAG IV CONT (05:47)
[2024-07-14] MEDS: LACTATED RINGERS 1,000 ML 125 ML IV CONT (05:47)
[2024-07-14] MEDS: fentaNYL CITRATE INJ (*CRX) 100 MCG/2 ML VIAL 50 MCG IV PUSH (05:53)
[2024-07-14] MEDS: ONDANSETRON INJ 4 MG/2 ML VIAL IV PUSH (07:55)
--- NOTE | 2024-07-14 08:06 | PM.IMHP ---
H&P: HPI History of Present Illness Date/Time: 07/14/24 08:06 Chief Complaint: chronic hypertension Narrative: Patient is a 39 year old who presents for medical induction of labor indicated for chronic hypertension, well controlled without medications. Her has also been complicated by AMA. Her testing has been reactive. She denies symptoms of preeclampsia. Review of Systems Review of Systems: All systems reviewed & are unremarkable except as noted in HPI and below PMFSH Past Medical History Medical History Morbid obesity Obesity HTN (hypertension) IUP (intrauterine ), incidental Family History Family History Mother Borderline diabetes Hypertension High cholesterol Social History Social History Smoking status: Never smoker Substance use: never Do You Feel Safe in your Home?: Yes Lack of Transportation: No Lack of Food: Never True Current Housing: I Have Housing Concerned About Future Housing: No Difficulty Paying Gas/Electric Bills: No Difficulty Paying for Meds: No Currently Unemployed: No Education: High School Diploma/GED Difficulty w/ Childcare or Family Care: No Spiritual care concerns: No Meds Home Medications and Allergies Home Medications ?Medication ?Instructions ?Recorded ?Confirmed ?Type aspirin 81 mg tablet,delayed 81 mg PO DAILY 04/12/22 07/03/24 History release (Donna Low Dose Aspirin) ferrous sulfate 142 mg (45 mg 142 mg PO DAILY 04/12/22 07/14/24 History iron) tablet,extended release montelukast 10 mg tablet 10 mg PO DAILY 04/12/22 07/14/24 History prenat.vits,venkatesh,neb-cafr-qagok 1 tablet PO DAILY 04/12/22 07/14/24 History Allergies Allergy/AdvReac Type Severity Reaction Status Date / Time No Known Allergies Allergy Verified 07/14/24 01:20 Vital Signs Vital Signs - 24 hr 07/14/24 00:23 07/14/24 00:25 07/14/24 00:30 Temperature 97.7 F Pulse Rate 98 93 Respiratory Rate Blood Pressure 129/84 130/86 Pulse Oximetry Oxygen Delivery 07/14/24 00:39 07/14/24 00:45 07/14/24 00:47 Temperature Pulse Rate 95 Respiratory Rate Blood Pressure 121/80 Pulse Oximetry 97 Oxygen Delivery Room Air 07/14/24 00:52 07/14/24 00:57 07/14/24 01:00 Temperature Pulse Rate 86 Respiratory Rate Blood Pressure 131/89 Pulse Oximetry 99 99 Oxygen Delivery 07/14/24 01:02 07/14/24 01:07 07/14/24 01:12 Temperature Pulse Rate Respiratory Rate Blood Pressure Pulse Oximetry 98 99 99 Oxygen Delivery 07/14/24 01:17 07/14/24 01:22 07/14/24 01:27 Temperature Pulse Rate Respiratory Rate Blood Pressure Pulse Oximetry 97 98 98 Oxygen Delivery 07/14/24 01:31 07/14/24 01:32 07/14/24 01:37 Temperature Pulse Rate 71 Respiratory Rate Blood Pressure 105/57 L Pulse Oximetry 98 98 Oxygen Delivery 07/14/24 01:42 07/14/24 01:47 07/14/24 01:52 Temperature Pulse Rate Respiratory Rate Blood Pressure Pulse Oximetry 97 97 98 Oxygen Delivery 07/14/24 01:57 07/14/24 02:00 07/14/24 02:02 Temperature Pulse Rate 76 Respiratory Rate Blood Pressure 116/71 Pulse Oximetry 98 98 Oxygen Delivery 07/14/24 02:07 07/14/24 02:12 07/14/24 02:17 Temperature Pulse Rate Respiratory Rate Blood Pressure Pulse Oximetry 98 98 97 Oxygen Delivery 07/14/24 02:22 07/14/24 02:27 07/14/24 02:30 Temperature Pulse Rate 76 Respiratory Rate Blood Pressure 127/87 Pulse Oximetry 98 97 Oxygen Delivery 07/14/24 02:32 07/14/24 02:37 07/14/24 02:40 Temperature Pulse Rate Respiratory Rate Blood Pressure Pulse Oximetry 97 100 98 Oxygen Delivery 07/14/24 02:45 07/14/24 02:50 07/14/24 02:55 Temperature Pulse Rate Respiratory Rate Blood Pressure Pulse Oximetry 97 97 97 Oxygen Delivery 07/14/24 03:00 07/14/24 03:01 07/14/24 03:05 Temperature Pulse Rate 83 Respiratory Rate Blood Pressure 129/84 Pulse Oximetry 97 96 Oxygen Delivery 07/14/24 03:10 07/14/24 03:15 07/14/24 03:20 Temperature Pulse Rate Respiratory Rate Blood Pressure Pulse Oximetry 97 97 98 Oxygen Delivery 07/14/24 03:25 07/14/24 03:30 07/14/24 03:35 Temperature Pulse Rate 84 Respiratory Rate Blood Pressure 131/83 Pulse Oximetry 98 98 97 Oxygen Delivery 07/14/24 03:40 07/14/24 03:45 07/14/24 03:50 Temperature Pulse Rate Respiratory Rate Blood Pressure Pulse Oximetry 98 96 98 Oxygen Delivery 07/14/24 03:55 07/14/24 04:00 07/14/24 04:01 Temperature 97.6 F Pulse Rate 79 Respiratory Rate Blood Pressure 108/57 L Pulse Oximetry 99 98 Oxygen Delivery 07/14/24 04:05 07/14/24 04:10 07/14/24 04:15 Temperature Pulse Rate Respiratory Rate Blood Pressure Pulse Oximetry 98 98 95 Oxygen Delivery 07/14/24 04:20 07/14/24 04:25 07/14/24 04:30 Temperature Pulse Rate 78 Respiratory Rate Blood Pressure 104/72 Pulse Oximetry 94 97 95 Oxygen Delivery 07/14/24 04:35 07/14/24 04:40 07/14/24 04:45 Temperature Pulse Rate Respiratory Rate Blood Pressure Pulse Oximetry 96 97 94 Oxygen Delivery 07/14/24 04:50 07/14/24 04:55 07/14/24 04:58 Temperature Pulse Rate Respiratory Rate Blood Pressure Pulse Oximetry 98 98 95 Oxygen Delivery 07/14/24 05:00 07/14/24 05:03 07/14/24 05:08 Temperature Pulse Rate 78 Respiratory Rate Blood Pressure 122/89 Pulse Oximetry 98 97 Oxygen Delivery 07/14/24 05:13 07/14/24 05:18 07/14/24 05:23 Temperature Pulse Rate Respiratory Rate Blood Pressure Pulse Oximetry 96 98 97 Oxygen Delivery 07/14/24 05:28 07/14/24 05:31 07/14/24 05:33 Temperature Pulse Rate 83 Respiratory Rate Blood Pressure 130/86 Pulse Oximetry 98 98 Oxygen Delivery 07/14/24 05:38 07/14/24 05:43 07/14/24 05:48 Temperature Pulse Rate Respiratory Rate Blood Pressure Pulse Oximetry 97 98 99 Oxygen Delivery 07/14/24 05:53 07/14/24 05:58 07/14/24 06:01 Temperature Pulse Rate 81 Respiratory Rate Blood Pressure 131/82 Pulse Oximetry 98 99 Oxygen Delivery 07/14/24 06:03 07/14/24 06:08 07/14/24 06:13 Temperature Pulse Rate Respiratory Rate Blood Pressure Pulse Oximetry 98 98 97 Oxygen Delivery 07/14/24 06:18 07/14/24 06:23 07/14/24 06:28 Temperature Pulse Rate Respiratory Rate Blood Pressure Pulse Oximetry 97 98 97 Oxygen Delivery 07/14/24 06:31 07/14/24 06:33 07/14/24 06:38 Temperature Pulse Rate 80 Respiratory Rate Blood Pressure 138/86 Pulse Oximetry 96 97 Oxygen Delivery 07/14/24 06:43 07/14/24 06:48 07/14/24 06:53 Temperature Pulse Rate Respiratory Rate Blood Pressure Pulse Oximetry 97 96 97 Oxygen Delivery 07/14/24 06:58 07/14/24 07:01 07/14/24 07:03 Temperature Pulse Rate 76 Respiratory Rate Blood Pressure 128/87 Pulse Oximetry 97 98 Oxygen Delivery 07/14/24 07:08 07/14/24 07:13 07/14/24 07:18 Temperature Pulse Rate Respiratory Rate Blood Pressure Pulse Oximetry 97 100 97 Oxygen Delivery 07/14/24 07:20 07/14/24 07:25 07/14/24 07:30 Temperature 97.6 F Pulse Rate Respiratory Rate 16 Blood Pressure Pulse Oximetry 98 97 100 Oxygen Delivery 07/14/24 07:31 07/14/24 07:35 07/14/24 07:40 Temperature Pulse Rate 82 Respiratory Rate Blood Pressure 139/73 Pulse Oximetry 99 98 Oxygen Delivery 07/14/24 07:45 07/14/24 07:50 07/14/24 07:55 Temperature Pulse Rate Respiratory Rate Blood Pressure Pulse Oximetry 99 100 100 Oxygen Delivery 07/14/24 08:00 07/14/24 08:01 Temperature Pulse Rate 101 H Respiratory Rate Blood Pressure 145/93 H Pulse Oximetry 99 Oxygen Delivery Exam Const: General: comfortable and no acute distress HENMT: Mouth: Yes moist mucous membranes Eyes: General: appearance normal, both eyes and all related structures Resp: Effort & Inspection: normal respiratory effort Cardio: Rate: regular rate : Other: SVE 4/60/-2, AROM of clear fluid Skin: General skin exam: normal color Extrem: General: normal to inspection Psych: Mental Status: mental status grossly normal H&P: Results Labs Labs: Short CBC 07/14/24 Range/Units 00:18 WBC 11.1 H (4.5-10.0) K/mm3 Hgb 12.3 (12.0-15.0) g/dL Hct 36.8 L (37.0-47.0) % Plt Count 188 (150-375) k/mm3 Assessment and Plan Assessment and plan (1) Chronic hypertension affecting : Code(s): O10.919 - Unspecified pre-existing hypertension complicating , unspecified trimester Status: Acute Assessment and Plan: - asymptomatic - normotensive - well controlled without medications - continue monitor for signs and symptoms of preeclampsia (2) AMA (advanced maternal age) multigravida 35+: Code(s): O09.529 - Supervision of elderly multigravida, unspecified trimester Status: Acute (3) Encounter for planned induction of labor: Code(s): Z34.90 - Encounter for supervision of normal , unspecified, unspecified trimester Status: Acute Assessment and Plan: - SVE /-2, AROM of clear fluid - pitocin per protocol - FHR category I
--- NOTE | 2024-07-14 08:42 | PM.OBPRVD ---
OB - Vaginal Delivery Note Procedure Delivery date: 07/14/24 Events: Chronic Hypertension and Other (AMA) Induction method: Per Misoprostol Protocol Delivery augmentation: Rupture of Membranes and Pitocin Delivery monitor: External FHT and External Uterine Route of delivery: Episiotomy description: None Laceration Description: None Specimen: No Quantitative Blood Loss (ml): 50 Anesthesia type: None Disposition: Floor Complications: No immediate complications Narrative: See H&P and notes for details on patient's admission and labor. She progressed to complete cervical dilation and at the appropriate time began pushing. With adequate expulsive efforts by the mother, the baby's head was delivered without difficulty. Nuchal cord was not present. The baby's left shoulder was anterior and delivered under the pubic symphysis without difficulty. The posterior shoulder and the rest of the baby delivered without difficulty. The umbilical cord was doubly clamped and cut after 90 seconds of delayed cord clamping. Care of the was then assumed by the nursing staff. Baby Date of : 07/14/24 Time of : 08:32 Gestational Age by Date: 38 Infant gender: Female presentation: vertex position: Left Occiput Anterior Placenta delivery description: Expressed Cord Vessel Description: 3 Vessels and Delayed Cord Clamping
[2024-07-14] MEDS: OXYTOCIN 30 UNITS/NS 500 ML 30 UNITS/500 ML BAG 125 UNITS IV CONT (09:05)
[2024-07-14] MEDS: IBUPROFEN 600 MG TABLET PO ×2 (10:13→16:25)
[2024-07-14] MEDS: WITCH HAZEL 40 PADS 1 PAD TOPICAL (10:56)
[2024-07-14] MEDS: BENZOCAINE 20% AER SPR (*SP) 56 GM CAN 1 SPRAY TOPICAL (10:56)
--- NOTE | 2024-07-14 11:30 | OBPPTRN ---
Patient transferred to post room #288 via wheelchair. Support person present. Oriented to unit, room, information board, rooming in, admission packet and security measures. Patient verbalizes understanding.
[2024-07-14] MEDS: ACETAMINOPHEN 325 MG TABLET 650 MG PO ×2 (12:04→18:54)
--- NOTE | 2024-07-14 13:23 | PC.NURSE ---
On 07/14/24, the student, Lupis Leyva, provided care and completed [facility] documentation on this patient. I have reviewed the student's documentation and agree with the findings.
[2024-07-14] MEDS: DOCUSATE SODIUM 100 MG CAPSULE PO (16:25)
[2024-07-15 04:40] VITALS: BP 123/87; PULSE 77; RESP 14; TEMP 36.3; O2SAT 98
[2024-07-15 05:17] LABS: Hematocrit 36.8 % (37.0-47.0); Hemoglobin 12.1 g/dL (12.0-15.0)
[2024-07-15] MEDS: IBUPROFEN 600 MG TABLET PO (05:19)
--- NOTE | 2024-07-15 08:00 | PC.NURSE ---
Per patient's primary RN, mother verbalizes she is able to independently latch infant with appropriate positioning and alignment. She denies any nipple discomfort and is responsively . Infant is currently meeting outcomes for weight, output, jaundice, blood sugar and feeding frequencies of 8-12 times in 24 hours. Mother declines any assistance or education at this time from . Mother is encouraged to call for assistance if her doesn?t latch, pain with latching, questions or concerns. Mother was given handout packet and discharge information from Primary RN.
[2024-07-15 08:35] VITALS: BP 118/89; PULSE 74; RESP 16; TEMP 36.3; O2SAT 93
[2024-07-15] MEDS: ACETAMINOPHEN 325 MG TABLET 650 MG PO (09:12)
[2024-07-15] MEDS: SIMETHICONE 80 MG TAB.CHEW PO (09:13)
[2024-07-15] MEDS: MULTIVIT/MIN/PREN/FOL AC/IRON TABLET 1 TAB PO (09:13)
[2024-07-15] MEDS: DOCUSATE SODIUM 100 MG CAPSULE PO (09:13)
--- NOTE | 2024-07-15 09:26 | PC.NURSE ---
On 07/15/24, the students, Sergio and Darline, provided care and completed [facility] documentation on this patient. I have reviewed the student's documentation and agree with the findings.
--- NOTE | 2024-07-15 09:40 | P.PNOB_ITS ---
OB - PN: Subj Subjective Date/time seen: 07/15/24 09:40 Patient comments: no complaints, pain well controlled and tolerating diet OB - PN: Obj Data Labs 07/15/24 04:53 Labs: Laboratory Results - last 24 hr 07/15/24 04:53 Hgb 12.1 Hct 36.8 L OB - PN A/P Plan day: 2 Plan: routine care and discharge home Time Spent With Patient Time: Total time spent is greater than 50% in coordination of care (as documented) at patient's floor/unit and/or counseling patient: Exam 2 Const: General: comfortable and no acute distress Resp: Effort & Inspection: normal respiratory effort Auscultation: no rales, no rhonchi and no wheezes Cardio: Rate: regular rate Heart sounds: no click, no murmurs and no rubs GI: GI Palp: Yes Soft to palpation and No Tenderness to palpation present (GI) Auscultation: normal bowel sounds Extrem: General: normal to inspection, no pedal edema and no calf tenderness
--- NOTE | 2024-07-15 09:40 | PM.OBDSVD ---
DS: Admitting Diagnosis Discharge Date July 15, 2024 Admitting Diagnosis term DS: Discharge Diagnosis Discharge Diagnosis (1) Post term , delivered: Code(s): O48.0 - Post-term Status: Acute OB - DS: Summary OB Procedures : None OB Procedures Intrapartum: Spontaneous Vag Delivery OB Procedures: : None Peripartum Data Laceration Description: None Episiotomy description: None Time Spent with Patient Time attestation: Total time spent providing and/or coordinating discharge services: DS: Data Data Completed and Pending Labs on day of discharge: Labs from last 24 hours 07/15/24 04:53 Hgb 12.1 Hct 36.8 L Discharge Plan Discharge Discharging Clinician: Hunter Garcia Activity: pelvic rest Diet: regular Patient Language: Sami Follow-up/Referrals: Hunter Garcia MD [Physician] - Discharge Medications: Continued aspirin [Donna Low Dose Aspirin] 81 mg Tablet,Delayed Release (Dr/Ec) 81 mg PO DAILY montelukast 10 mg Tablet 10 mg PO DAILY prenat.vits,venkatesh,[id number]-[id number] Tablet 1 tablet PO DAILY ferrous sulfate 142 mg (45 mg iron) Tablet Extended Release 142 mg PO DAILY Date of admission: 07/14/24 00:04 Primary Care Provider: Chela Baca Admitting Provider: Carlo Gómez Attending physician on admission: Carlo Gómez Condition: Stable
--- NOTE | 2024-07-15 10:13 | PC.NURSE ---
On 07/15/24, the license pending nurse, Mary Davalos, provided care and completed [employer] documentation on this patient. I have reviewed the license pending nurse's documentation and agree with the findings.
--- OUTSIDE RECORDS SUMMARY | 2024-07-15 20:51 | XMS_ITS | Data Portability ---
Author Organization [facility] Address [address] [place] [address] [place] [address] Care Team Providers Care Instrument Sterilizer Name Role Phone HARIS BATEMAN Primary Care Provider RIGOBERTO HAILE Primary Care Provider Assessment Encounter Date Assessment Date Assessment LastModified by Organization Details LastModified Time 07/14/2024 07/14/2024 Opened in error [email or web address] Not available 07/14/2024 11:02:43 Plan of Treatment Reminders Order Date Submit Date Provider Last Modified By Organization Details Last Modified Time Details Appointments U/S OB BPP 2024 10:00A M ULTRASOUND Not available Not available Not available NST 2024 10:30A M NST SCHEDULE Not available Not available Not available OB ROUTINE 2024 11:00A M DWIGHT JACOB MD Not available Not available Not available Lab None recorde d. Referral None recorde d. Procedures None recorde d. Surgeries None recorde d. Imaging US, obstetr ic, follow- up 2024 025 [email or web address] [facility], [address], [place], [address], 06/30/2024 12:47:36 US, obstetr ic, biophys ical profile + non-str ess test 2024 025 KELLY [facility], [address], [place], [address], 06/30/2024 13:09:44 non-str ess test 2024 025 [email or web address] [address], [address], [place], [address], 07/09/2024 04:54:39 US, obstetr ic, biophys ical profile + non-str ess test 2024 025 [email or web address] [address], [address], [place], [address], 07/07/2024 19:57:23 Medication Orders None recorde d. Patient TargetsNo targets recorded. Patient InstructionsNo instructions recorded. Reason for Referral None Reported. Results Created Date Observation Date Name Description Value Unit Range Abnormal Flag Note LastModifiedBy Organization Detail LastModifiedTime 06/30/1906/30/2024 CULTU RE: GROUP B STREP SCREE N, REFLE X SUSCE PTIBI LITY result report SEE RESULT S BELOW Test: Cultu re: Group B Strep , Refle x Susce ptibi lity ([facility] ) Speci men Sourc e: Vagin a/Rec melissa Speci men Type: Vagin al/Re ctal Speci men Date: 025 1326 Resul t Date: 2024 1405 Resul t Statu s: Final resul t Abnor mal: No Resul ting Lab: [facility] [address] [facility] [address] Tel: CULTU RE ----- ----- ----- --- No Group B strep isola karlie at 2 days (lambert ctive broth enhan cemen t) Not Available [facility] (Lab) [address], [place], [address], 07/03/2024 15:09:33 06/04/20 24 06/04/2024 US, obste tric, follo w-up No observ ation record ed. [email or web address] [facility] [address], [place], [address], 06/04/2024 17:23:59 06/04/20 24 06/04/2024 US, obste tric, bioph ysica l profi le + non-s tress test No observ ation record ed. [email or web address] [place] [address], [place], [address], 06/04/2024 17:24:19 06/04/20 24 06/04/2024 non-s tress test No observ ation record ed. [email or web address] [place] [address], [place], [address], 06/04/2024 11:16:55 06/04/2006/04/2024 US, obste tric, follo w-up No observ ation record ed. [email or web address] [address], [place], [address], 06/07/2024 11:36:08 06/09/20 24 06/09/2024 US, obste tric, bioph ysica l profi le + non-s tress test No observ ation record ed. [email or web address] [place] [address], [place], [address], 06/09/2024 11:41:01 06/09/20 24 06/09/2024 US, obste tric, bioph ysica l profi le + non-s tress test No observ ation record ed. [email or web address] [address], [place], [address], 06/09/2024 21:22:20 06/09/20 24 06/09/2024 non-s tress test No observ ation record ed. [email or web address] [place] [address], [place], [address], 06/09/2024 12:37:35 06/14/20 24 06/14/2024 US, obste tric, bioph ysica l profi le + non-s tress test No observ ation record ed. [email or web address] [facility] [address], [place], [address], 06/14/2024 13:05:37 06/14/20 24 06/14/2024 non-s tress test No observ ation record ed. [email or web address] [facility] [address], [place], [address], 06/14/2024 12:43:46 06/14/20 24 06/14/2024 US, obste tric, bioph ysica l profi le + non-s tress test No observ ation record ed. [email or web address] [address], [place], [address], 06/16/2024 00:01:52 06/21/20 24 06/21/2024 US, obste tric, bioph ysica l profi le + non-s tress test No observ ation record ed. [email or web address] [facility] [address], [place], [address], 06/21/2024 17:25:32 06/21/20 24 06/21/2024 US, obste tric, bioph ysica l profi le + non-s tress test No observ ation record ed. [email or web address] [address], [place], [address], 06/21/2024 22:25:11 06/21/20 24 06/21/2024 non-s tress test No observ ation record ed. [email or web address] [place] [address], [place], [address], 06/21/2024 21:13:59 06/29/19 non-s tress test No observ ation record ed. [email or web address] [facility] [address], [place], [address], 07/05/2024 18:16:03 06/29/19 25 06/21/2024 non-s tress test No observ ation record ed. [email or web address] [place] [address], [place], [address], 06/29/2024 11:39:06 06/30/19 25 06/30/2024 US, obste tric, follo w-up No observ ation record ed. [email or web address] [facility] [address], [place], [address], 06/30/2024 13:09:31 06/30/19 25 06/30/2024 US, obste tric, bioph ysica l profi le + non-s tress test No observ ation record ed. [email or web address] [facility] [address], [place], [address], 06/30/2024 13:09:44 06/30/19 25 06/30/2024 non-s tress test No observ ation record ed. [place] [address], [place], [address], 06/30/2024 12:52:50 06/30/19 25 06/30/2024 US, obste tric, follo w-up No observ ation record ed. [email or web address] [address], [place], [address], 06/30/2024 16:38:44 07/07/19 25 07/07/2024 US, obste tric, bioph ysica l profi le + non-s tress test No observ ation record ed. [email or web address] [facility] [address], [place], [address], 07/07/2024 13:08:50 07/07/19 25 07/07/2024 US, obste tric, bioph ysica l profi le + non-s tress test No observ ation record ed. [email or web address] [address], [place], [address], 07/08/2024 11:52:34 07/07/19 25 07/07/2024 non-s tress test No observ ation record ed. [email or web address] [place] [address], [place], [address], 07/07/2024 13:02:00 Result Notes None recorded. Problems Name Problem SNOMED Code Status Onset Date Resolution Date Notes Provider Name and Address Organization Details Recorded Time Essentia l hyperten luana 35673660 Active 2020 Domenica Regan MD [address], [place], [address], [facility] 1 12:41:00 Migraine 11983139 Active 2020 stable - relieved with Tylenol Keya gonzáles, [facility] 3 15:21:41 Anxiety 53866176 Active 2020 Domenica Regan MD [address], [place], [address], [facility] 1 12:41:05 Pregnanc y 58754715 Completed 202107/22/2022 Bhavna Talley null, [facility] 4 12:58:46 Migraine 48339221 Completed 2020 stable - relieved with Tylenol Keya gonzáles, [facility] 3 15:21:41 Chronic hyperten luana in obstetri c context 0254629 Completed labetalo l 100mg bid, ASA, ante testing 32w, deliver 38w Keya gonzáles, [facility] 3 15:21:41 Chronic hyperten luana in obstetri c context 4282859 Active labetalo l 100mg bid, ASA, ante testing 32w, deliver 38w Keya talbot null, [facility] 3 15:21:41 Pregnanc y 73824760 Active 2023 Bhavna Talley null, [facility] 4 12:58:46 Body mass index 30+ - obesity 938231087 Active weekly testing 37wks Christin Amos null, [facility] 4 16:45:31 Body mass index 30+ - obesity 441985008 Active weekly testing 37wks Christin Amos null, [facility] 4 16:45:31 Benign hyperten luana 90885688 Active controll ed with diet, 32 week antenata l testing, 38-39 week delivery DWIGHT JACOB MD [address], [place], [address], [place] [facility] 4 12:12:46 Problem Notes None recorded. Procedures Surgical History Date Name Laterality Status Provider Name and Address Organization Details Recorded Time 2 Date of Last Pap Smear completed Lyla Urbina [facility] 03/12/2022 17:07:46 6 extraction of wisdom tooth completed Mindi Mckay [facility] 05/25/2021 12:16:46 Imaging Results Imaging Date Name Status LastModified by Organiz ation Details LastModified Time 06/04/2024 US, obstetric, follow-up completed [facility] [address], [place], [address], 06/04/2024 17:23:59 06/04/2024 US, obstetric, biophysical profile + non-stress test completed [facility] [address], [place], [address], 06/04/2024 17:24:19 06/04/2024 non-stress test completed [email or web address] [place] [address], [place], [address], 06/04/2024 11:16:55 06/04/2024 US, obstetric, follow-up completed [email or web address] [address], [place], [address], 06/07/2024 11:36:08 06/09/2024 US, obstetric, biophysical profile + non-stress test completed [address], [place], [address], 06/09/2024 11:41:01 06/09/2024 US, obstetric, biophysical profile + non-stress test completed [email or web address] [address], [place], [address], 06/09/2024 21:22:20 06/09/2024 non-stress test completed [email or web address] [place] [address], [place], [address], 06/09/2024 12:37:35 06/14/2024 US, obstetric, biophysical profile + [facility] [address], [place], [address], 06/14/2024 13:05:37 06/14/2024 non-stress test completed [email or web address] [place] [address], [place], [address], 06/14/2024 12:43:46 06/14/2024 US, obstetric, biophysical profile + non-stress test completed [email or web address] [address], [place], [address], 06/16/2024 00:01:52 06/21/2024 US, obstetric, biophysical profile + non-stress test completed [email or web address] [place] [address], [place], [address], 06/21/2024 17:25:32 06/21/2024 US, obstetric, biophysical profile + non-stress test completed [email or web address] [address], [place], [address], 06/21/2024 22:25:11 06/21/2024 non-stress test completed [place] [address], [place], [address], 06/21/2024 21:13:59 06/29/2024 non-stress test completed [email or web address] [place] [address], [place], [address], 07/05/2024 18:16:03 06/21/2024 non-stress test completed [facility] [address], [place], [address], 06/29/2024 11:39:06 06/30/2024 US, obstetric, follow-up completed [email or web address] [facility] [address], [place], [address], 06/30/2024 13:09:31 06/30/2024 US, obstetric, biophysical profile + non-stress test completed [email or web address] [facility] [address], [place], [address], 06/30/2024 13:09:44 06/30/2024 non-stress test completed [email or web address] [place] [address], [place], [address], 06/30/2024 12:52:50 06/30/2024 US, obstetric, follow-up completed KELLY [address], [place], [address], 06/30/2024 16:38:44 07/07/2024 US, obstetric, biophysical profile + non-stress test completed [email or web address] [place] [address], [place], [address], 07/07/2024 13:08:50 07/07/2024 US, obstetric, biophysical profile + non-stress test completed [email or web address] [address], [place], [address], 07/08/2024 11:52:34 07/07/2024 non-stress test completed [facility] [address], [place], [address], 07/07/2024 13:02:00 Procedure Notes None recorded. Medical Equipment None Reported. Allergies No known drug allergies Medications Name Sig Start Date Stop Date Status Note LastModified by Organization Details LastModified Time atorvastati n 20 mg tablet 11/02 completed Not Available Not Available Not Available sumatriptan 100 mg tablet TAKE 1 TABLET BY MOUTH ONCE DAILY NEEDED, MAY REPEAT ONE TIME FOR MIGRAINE NO MORE THAN 2 DOSES IN 24 HOURS active Not Available Not Available No t Available nortriptyli ne 25 mg capsule TAKE 1 CAPSULE BY MOUTH AT BEDTIME 09/28 completed Not Available Not Available Not Available baclofen 10 mg tablet 11/02 completed Not Available Not Available Not Available montelukast 10 mg tablet TAKE 1 TABLET BY MOUTH ONCE DAILY active Not Available Not Available No t Available labetalol 100 mg tablet TAKE 1 TABLET BY MOUTH TWICE DAILY 12/22 completed Not Available Not Available Not Available nortriptyli ne 50 mg capsule 11/02 completed Not Available Not Available Not Available metoclopram patrice 10 mg tablet Take 1 tablet 4 times a day by oral route for 14 days. 09/04 completed Not Available Not Available Not Available Sprintec (28) 0.25 mg-35 mcg tablet 11/02 completed Not Available Not Available Not Available Imitrex 09/28 completed Not Available Not Available Not Available baclofen 09/28 completed Not Available Not Available Not Available active Not Available Not Avai lable Not Available Vitamin 10/01 completed Not Available Not Available Not Available Jencycla 0.35 mg tablet TAKE 1 TABLET BY MOUTH ONCE DAILY 12/22 completed Not Available Not Available Not Available Sruthi Fe 07/12 (28) 1 mg-20 mcg (21)/75 mg (7) tablet TAKE 1 TABLET BY MOUTH ONCE DAILY 12/22 completed Not Available Not Available Not Available Vitals Date Recorded Body height Body mass index (BMI) Body weight Systolic blood pressure Diastolic blood pressure Provider Name and Address Organization Details Last Updated DateTime 06/30/2024 160.02 cm 41.1 kg/m2 352428.4 3 g 127 mm[Hg] 83 mm[Hg] [facility] 5 12:38:31 Date Recorded Body height Body mass index (BMI) Body weight Systolic blood pressure Diastolic blood pressure Provider Name and Address Organization Details Last Updated DateTime 07/07/2024 160.02 cm 40.9 kg/m2 186914.8 4 g 130 mm[Hg] 85 mm[Hg] [facility] 5 12:16:13 Social History Question Answer Notes LastModified by Organizat ion Details LastModified Time Tobacco Smoking Status Never Smoker Hermilo Erickson [facility] 10/01/2022 15:26:45 Do You Have An Advance Directive? No Information n ot available 11/02/2021 What Is Your Level Of Alcohol Consumption? None Information not available 05/25/2021 Are You Blind Or Do You Have Difficulty Seeing? No Information n ot available 11/02/2021 What Is Your Level Of Caffeine Consumption? Occasional Information not available 11/02/2021 How Much Tobacco Do You Chew? None Information not available 11/02/2021 In The 14 Days Before Symptom Onset, Have You Had Close Contact With A Laboratory-confirm ed COVID-19 While That Case Was Ill? No Information n ot available 11/02/2021 In The 14 Days Before Symptom Onset, Have You Had Close Contact With A Person Who Is Under Investigation For COVID-19 While That Person Was Ill? No Information not available 11/02/2021 Have You Been To An Area Known To Be High Risk For COVID-19? No Information not available 11/02/2021 Are You Deaf Or Do You Have Serious Difficulty Hearing? No Information not available 11/02/2021 What Type Of Diet Are You Following? REGULAR Information n ot available 11/02/2021 What Is The Highest Grade Or Level Of School You Have Completed Or The Highest Degree You Have Received? [id number] Information not available 11/02/2021 Are There Any Guns Present In Your Home? Yes Information not available 11/02/2021 Do You Use Protection During Sex? No Information not available 11/02/2021 Do You Use Your Seat Belt Or Car Seat Routinely? Yes Information not available 11/02/2021 Do You Have Smoke And Carbon Monoxide Detectors In Your Home? Yes Information not available 11/02/2021 How Much Tobacco Do You Smoke? No Information not available 11/02/2021 Do You Feel Stressed (tense, Restless, Nervous, Or Anxious, Or Unable To Sleep At Night)? [id number] Information not available 11/02/2021 Do You Use Any Illicit Or Recreational Drugs? No Information not available 05/25/2021 Do You Use Sunscreen Routinely? Yes Information not available 11/02/2021 Has Tobacco Cessation Counseling Been Provided? No Information not available 10/01/2022 Have You Used IV Drugs? No Information not available 11/02/2021 Do You Or Have You Ever Used Any Other Forms Of Tobacco Or Nicotine? No [email or web address] Information not available 10/01/2022 Sex: Unknown Functional Status Question Answer Note LastModified by Organizat ion Details LastModified Time Do you have difficulty walking or climbing stairs? No [email or web address] Information not available 06/21/2024 Are you able to walk? YESWOREST Information not available 11/02/2021 Are you able to care for yourself? Yes [email or web address] Information not available 06/21/2024 Do you have difficulty dressing or bathing? No [email or web address] Information not available 06/21/2024 What is your exercise level? Occasional Information not available 11/02/2021 Mental Status None recorded. Family History Relationship Description Onset Age of this Age Resolved Age Notes LastModified by Organization Details LastModified Time Mother Diabetes mellitus [email or web address] Not available 2020 12:18:57 Maternal Uncle Diabetes mellitus [email or web address] Not available 2020 12:18:57 Maternal Aunt Diabetes mellitus [email or web address] Not available 2020 12:18:57 Medical History Condition Response Allergies (Food, seasonal, environmental ) Y Other N Drug/Latex Allergies/Reactions N Blood Transfusion N Breast Cancer N Dermatologic Disorders N Lung Disease N Defects or Inherited Disease N Breast Problem N Gestational Diabetes N Hematologic disorders N Anesthesia Complications Y History of STI N Deep Vein Thrombosis N Polycystic ovary syndrome N Anxiety Disorder Y Autoimmune disease N Arthritis N Polyps N Infertility N Acid Reflux (GERD) Y History of abnormal pap N Cancer N Varicosities N Stroke N Neurologic/Epilepsy N Endometriosis N High Cholesterol Y Fibromyalgia N Headaches Y Kidney Disease N Heart Problems N Thyroid Problems N Kidney or Bladder Problems N GI Problems N Eating Disorder N Anemia N Art (IVF or FET) N Psychiatric Illness N Ovarian Cancer N Diabetes Y Pulmonary (TB, Asthma) N Hepatitis/Liver Disease N No Past Medical History N Eczema Y Urinary Tract Infection Y Abuse/Domestic Violence N Asthma N Trauma/Violence N Depression/ depression N Heart Disease N Pre-Eclampsia N Hypertension Y Osteoporosis N Thrombophilias N Gynecological History Statement/Question Response Date of Last Mammogram Flow Moderate Date of LMP 10/22/2023 N Was last menstrual period normal Y STIs/STDs N Date of Last Colonoscopy Seeking Abnormal Pap N HPV Vaccine Y Duration of Flow (days) 5 12 Current Control Method Age at First Child 27 Are cycles usually normal Y Frequency of Cycle (Q days) 30 Sexually Active? Y Menses Monthly Y Date of DEXA bone scan Age of first menstrual cycle 14 Date of Last Pap Smear 12/07/2021 Sexual Problems? N LMP Definite N Obstetrics History GPAL:G 3 P 2 0 0 2 Type Value Full Term 2 Living 2 Total 3 Past Encounters Encounter ID Performer Location Encounter Start Date Encounter Closed Date Diagnosis/Indication Diagnosis SNOMED-CT Code Diagnosis ICD10 Code Diagnosis Note [id number] Domenica Regan MD [facility] [address],[place] [address] 05/25/2021 12:08:05 05/25/2021 14:01:28 Trying to conceive 202861689 Z31.9 Essential hypertension 18850134 I10 Type 2 jannet betes mellitus 31041300 E11.9 Migraine 09087220 G43.90 9 Anxiety 34298856 F41.9 [id number] Hunter Garcia MD [facility] [address],[place] [address] 09/28/2021 16:16:28 09/28/2021 17:36:50 Gynecologic examination 57922848 Z01.419 This patient is here for her annual exam. A thorough history was taken. A physical exam was performed. Age appropriat e routine health screening was ordered, performed, and discussed. Recommende d testing was ordered. She was asked to follow up in one year. She will be informed of any test results. Amenorrhea , , 7 weeks 5 days, given precaution s. [id number] Danika Escobar [facility] [address],[place] [address] 09/28/2021 16:15:55 09/28/2021 16:42:59 [id number] Danika Escobar [facility] [address],[place] [address] 11/02/2021 15:28:28 11/02/2021 16:52:17 screening 976325448 Z36.82 [id number] Hunter Garcia MD [facility] [address],[place] [address] 11/02/2021 15:29:28 11/02/2021 17:31:29 Routine care 998752074 Z34.81 [id number] Domenica Regan MD [facility] [address],[place] [address] 12/07/2021 15:33:48 12/07/2021 17:04:37 Routine care 930124269 Z34.82 Screening for malignant neoplasm of cervix 570543294 Z12.4 [id number] [facility] [address],[place] [address] 12/31/2021 15:46:05 12/31/2021 17:46:37 screening for malformation 379923984 Z36.3 [id number] Domenica Regan MD [place] [address],[place] [address] 12/31/2021 15:46:28 01/01/2022 15:20:24 Chronic hypertension in obstetric context 7529731 O16.9 [id number] Domenica Regan MD [place] [address],[place] [address] 02/01/2022 13:06:51 02/01/2022 14:27:23 Chronic hypertension in obstetric context 6097201 O16.9 Routine an tenatal care 077350740 Z34.82 [id number] Danika Escobar [facility] [address],[place] [address] 02/15/2022 10:15:49 02/15/2022 11:26:26 Chronic hypertension complicating AND/OR reason for care during 04643652 O16.9 Z3A.27 [id number] Domenica Regan MD [facility] [address],[place] [address] 02/15/2022 10:16:30 02/15/2022 12:11:09 Routine care 215785124 Z34.82 Chronic hy pertension in obstetric context 3188838 O16.9 [id number] Domenica Regan MD [place] [address],[place] [address] 03/01/2022 14:18:59 03/01/2022 15:05:48 Chronic hypertension in obstetric context 8985941 O16.9 Routine an tenatal care 915403209 Z34.[id number] [facility] [address],[place] [address] 03/13/2022 09:23:59 03/13/2022 10:43:07 Chronic hypertension complicating AND/OR reason for care during 56171695 O10.013 Z3A.31 [id number] [facility] [address],[place] [address] 03/13/2022 09:24:37 03/13/2022 10:41:39 Routine care 484356263 Z34.93 [id number] Danika Escboar [facility] [address],[place] [address] 03/20/2022 09:15:20 03/20/2022 10:19:42 Chronic hypertension complicating AND/OR reason for care during 87205637 O10.013 Z3A.32 [id number] [facility] [address],[place] [address] 03/20/2022 09:15:42 03/20/2022 12:11:06 Chronic hypertension complicating AND/OR reason for care during 53092063 O10.013 Z3A.32 [id number] Domenica Regan MD [place] [address],[place] [address] 03/20/2022 09:15:58 03/20/2022 11:09:29 Chronic hypertension in obstetric context 5747540 O16.[id number] [facility] [address],[place] [address] 03/27/2022 09:26:38 03/27/2022 10:34:59 Chronic hypertension complicating AND/OR reason for care during 20835418 O10.013 Z3A.33 [id number] [facility] [address],[place] [address] 03/27/2022 09:27:02 03/27/2022 10:39:05 Chronic hypertension complicating AND/OR reason for care during 93418785 O16.9 [id number] [facility] [address],[place] [address] 03/27/2022 09:27:55 03/27/2022 11:41:28 Routine care 320274031 Z34.93 [id number] Danika Escobar [facility] [address],[place] [address] 04/03/2022 09:30:37 04/03/2022 10:04:18 Chronic hypertension complicating AND/OR reason for care during 51442733 O10.013 Z3A.34 [id number] [facility] [address],[place] [address] 04/03/2022 09:32:10 04/03/2022 10:52:53 Chronic hypertension complicating AND/OR reason for care during 76865623 O10.013 Z3A.34 [id number] Domenica Regan MD [facility] [address],[place] [address] 04/03/2022 09:32:58 04/09/2022 15:16:19 Chronic hypertension in obstetric context 9837112 O16.9 Routine an tenatal care 798706488 Z34.82 [id number] Danika Escobar [facility] [address],[place] [address] 04/10/2022 09:18:48 04/10/2022 10:36:30 Chronic hypertension complicating AND/OR reason for care during [id number] O10.013 Z3A.35 [id number] [facility] [address],[place] [address] 04/10/2022 09:19:11 04/10/2022 10:52:19 Chronic hypertension complicating AND/OR reason for care during 34528814 O10.013 Z3A.35 [id number] Domenica Regan MD [place] [address],[place] [address] 04/10/2022 09:19:35 04/10/2022 12:25:12 Chronic hypertension in obstetric context 0334043 O16.9 [id number] Danika Escobar [place] [address],[place] [address] 04/17/2022 09:02:37 04/17/2022 09:41:35 Chronic hypertension complicating AND/OR reason for care during 25269615 O16.9 Z3A.36 [id number] Kusum Muniz [facility] [address],[place] [address] 04/17/2022 09:03:18 04/17/2022 12:58:45 Chronic hypertension complicating AND/OR reason for care during 09186355 O16.9 Z3A.36 [id number] Domenica Regan MD [place] [address],[place] [address] 04/17/2022 09:03:51 04/17/2022 11:23:54 Chronic hypertension in obstetric context 4013251 O16.9 [id number] Dhara Kelvin [facility] [address],[place] [address] 04/24/2022 09:58:29 04/24/2022 15:04:00 Chronic hypertension complicating AND/OR reason for care during 69489903 O16.9 Z3A.36 [id number] Domenica Regan MD [facility] [address],[place] [address] 04/24/2022 09:59:30 04/24/2022 12:16:01 Chronic hypertension in obstetric context 8353840 O16.9 [id number] Danika Silverson [place] [address],[place] [address] 1 04/24/2022 09:59:49 04/24/2022 12:16:26 Chronic hypertension complicating AND/OR reason for care during 48591539 O16.9 Z3A.37 [id number] Domenica Regan MD [facility] [address],[place] [address] 05/29/2022 14:06:53 05/30/2022 16:49:33 care 099918468 Z39.2 Initial pr escription of oral contraception 819102816 Z30.011 Inadequate flow of breast milk 082492308 O92.4 [id number] Domenica Regan MD [facility] [address],[place] [address] 10/01/2022 15:26:38 10/01/2022 15:55:43 Gynecologic examination 94939143 Z01.419 Z11.51 Surveillan ce of oral contraception 329172734 Z30.41 [id number] [facility] [address],[place] [address] 1 12/23/2023 11:57:50 12/23/2023 12:33:20 [id number] Hunter Garcia MD [facility] [address],[place] [address] 12/23/2023 11:58:14 12/24/2023 11:08:19 Amenorrhea 97352948 N91.2 this patient is a 38-year-ol d female who presents for amenorrhea . She is a positive test. Ultrasound revealed a 1st trimester gestation. Patient has no complaints . We talked about early care. Talked about genetic screening. We talked about her ultrasound results. We talked about the 12 week ultrasound that has genetic screening components . She was given recommenda tions on exercise, diet, over-the-c ounter medication s. We reviewed her obstetric history. We reviewed her medical history. We reviewed her social history. She will begin routine care at her next visit. I spent over 20 minutes on the care of this patient. [facility] [address],[place] [address] 01/20/2024 12:04:07 01/20/2024 12:43:30 screening 261318898 Z36.82 Z3A.12 [id number] Hunter Garcia MD [facility] [address],[place] [address] 01/20/2024 12:04:39 01/21/2024 10:59:00 Routine care 803611886 Z34.81 [id number] Hunter Garcia MD [facility] [address],[place] [address] 02/16/2024 12:24:44 02/16/2024 13:08:16 Routine care 850606120 Z34.81 [id number] Sharon Reeyz [facility] [address],[place] [address] 03/15/2024 11:35:03 03/15/2024 12:43:29 screening for malformation 400445568 Z36.3 Z3A.20 [id number] Hunter Garcia MD [facility] [address],[place] [address] 03/15/2024 12:08:58 03/15/2024 22:00:43 [id number] Hunter Garcia MD [facility] [address],[place] [address] 03/15/2024 15:52:00 03/15/2024 16:59:50 Routine care 900533195 Z34.81 [id number] DWIGHT JACOB MD [facility] [address],[place] [address] 1 04/12/2024 12:24:30 04/12/2024 15:31:58 Chronic hypertension in obstetric context 9379588 O16.9 - asymptomat ic- BP stable- testing at 32 weeks, delivery at 37-38 weeks Body mass index 30+ - obesity 309598168 Z68.39 Maternal o besity complicating , childbirth and the puerperium, antepartum 1587866127 07 O99.212 Gestation period, 24 weeks 315759670 Z3A.24 [id number] DWIGHT JACOB MD [facility] [address],[place] [address] 05/11/2024 11:26:45 05/11/2024 12:23:31 Chronic hypertension complicating AND/OR reason for care during 05226923 O16.9 - overall well controlled without meds- asymptomat ic- mild range BP today- discussed 32 week testing and delivery by 40 weeks Gestation period, 28 weeks 88317247 Z3A.28 Body mass index 30+ - obesity 429520362 Z68.39 [id number] DWIGHT JACOB MD [facility] [address],[place] [address] 05/28/2024 15:11:29 05/28/2024 15:55:59 Chronic hypertension in obstetric context 5845051 O16.9 - asymptomat ic- BP stable- testing at 32 weeks, delivery at 37-38 weeks Body mass index 30+ - obesity 047782378 Z68.39 Gestation period, 31 weeks 71612972 Z3A.31 [id number] Kelsea Cerda [facility] [address],[place] [address] 06/04/2024 10:02:37 06/04/2024 10:42:33 Chronic hypertension complicating AND/OR reason for care during 50324053 O16.3 Z3A.32 [id number] Teri Melendez [facility] [address],[place] [address] 06/04/2024 10:03:18 06/04/2024 11:34:18 Chronic hypertension complicating AND/OR reason for care during 52011301 O16.9 - overall well controlled without meds- asymptomat ic- mild range BP today- discussed 32 week testing and delivery by 40 weeks [id number] DWIGHT JACOB MD [facility] [address],[place] [address] 06/04/2024 10:03:47 06/04/2024 11:55:26 Maternal obesity complicating , childbirth and the puerperium, antepartum 5168400982 07 O99.212 Chronic hy pertension complicating AND/OR reason for care during 14614758 O16.9 - overall well controlled without meds- asymptomat ic- normotensi ve today- continue weekly testing and delivery by 38-40 weeks Gestation period, 32 weeks 5495087 Z3A.32 [id number] Sharon Reyez [facility] [address],[place] [address] 06/09/2024 10:56:49 06/09/2024 11:40:30 Chronic hypertension complicating AND/OR reason for care during 67108356 O10.013 Z3A.33 [id number] Teri Melendez [facility] [address],[place] [address] 06/09/2024 10:57:43 06/09/2024 12:50:36 Chronic hypertension complicating AND/OR reason for care during 56978966 O16.9 - overall well controlled without meds- asymptomat ic- normotensi ve today- continue weekly testing and delivery by 38-40 weeks [id number] DWIGHT JACOB MD [facility] [address],[place] [address] 06/09/2024 10:58:01 06/09/2024 12:34:29 Chronic hypertension in obstetric context 3562657 O16.9 - asymptomat ic- BP stable- testing at 32 weeks, delivery at 37-38 weeks Body mass index 30+ - obesity 216229641 Z68.39 Gestation period, 33 weeks 36377087 Z3A.33 [id number] Teri Melendez [facility] [address],[place] [address] 1 06/14/2024 11:26:18 06/14/2024 13:07:56 Chronic hypertension complicating AND/OR reason for care during 92439528 O16.9 - overall well controlled without meds- asymptomat ic- normotensi ve today- continue weekly testing and delivery by 38-40 weeks [id number] Kelsea Cerda [facility] [address],[place] [address] 06/14/2024 11:27:13 06/14/2024 12:31:49 Chronic hypertension complicating AND/OR reason for care during 61198649 O10.013 Z3A.33 [id number] DWIGHT JACOB MD [facility] [address],[place] [address] 06/14/2024 11:28:04 06/14/2024 13:07:41 Chronic hypertension in obstetric context 2307002 O16.9 - asymptomat ic- BP stable- testing at 32 weeks, delivery at 37-38 weeks Body mass index 30+ - obesity 055453708 Z68.39 Gestation period, 33 weeks 45346157 Z3A.33 [id number] Sharon Reyez [facility] [address],[place] [address] 06/21/2024 11:06:49 06/21/2024 12:09:28 Chronic hypertension complicating AND/OR reason for care during 75066586 O10.013 O99.213 Z3A.34 [id number] Lyla Urbina [facility] [address],[place] [address] 06/21/2024 11:07:31 06/22/2024 12:14:52 Chronic hypertension complicating AND/OR reason for care during 05697989 O16.9 [id number] Hunter Garcia MD [facility] [address],[place] [address] 06/21/2024 11:07:49 06/21/2024 13:22:01 Routine care 009070049 Z34.81 [id number] Kelsea Cerda [facility] [address],[place] [address] 06/30/2024 11:11:43 06/30/2024 12:09:02 Chronic hypertension complicating AND/OR reason for care during 34454328 O16.9 O99.210 Z3A.36 [id number] Teriparmjit Morochoen [facility] [address],[place] [address] 1 06/30/2024 11:57:15 06/30/2024 12:59:55 Chronic hypertension complicating AND/OR reason for care during 28911507 O16.9 - overall well controlled without meds- asymptomat ic- normotensi ve today- continue weekly testing and delivery by 38-40 weeks [id number] DWIGHT JACOB MD [facility] [address],[place] [address] 06/30/2024 11:57:55 07/07/2024 03:03:06 Chronic hypertension complicating AND/OR reason for care during 38876600 O16.9 - overall well controlled without meds- asymptomat ic- normotensi ve today- continue weekly testing and delivery by 38-40 weeks Gestation period, 36 weeks 34367508 Z3A.36 Advanced m aternal age 520715053 O09.523 Maternal o besity complicating , childbirth and the puerperium, antepartum 1756131200 07 O99.212 [id number] DWIGHT JACBO MD [facility] [address],[place] [address] 07/07/2024 10:55:16 07/07/2024 11:25:26 Chronic hypertension complicating AND/OR reason for care during 87967783 O10.013 O99.213 Z3A.37 [id number] Teriparmjit Melendez [facility] [address],[place] [address] 07/07/2024 10:55:36 07/07/2024 13:17:10 Chronic hypertension complicating AND/OR reason for care during 03817528 O16.9 - overall well controlled without meds- asymptomat ic- normotensi ve today- continue weekly testing and delivery by 38-40 weeks [id number] DWIGHT JACOB MD [place] [address],[facility] [place] [address] 07/07/2024 10:55:51 07/07/2024 12:53:19 Chronic hypertension complicating AND/OR reason for care during 35931148 O16.9 - overall well controlled without meds- asymptomat ic- normotensi ve today- continue weekly testing and delivery by 38-40 weeks Maternal o besity complicating , childbirth and the puerperium, antepartum 2659301381 07 O99.212 Gestation period, 37 weeks 33111502 Z3A.37 [id number] DWIGHT JACOB MD [facility] [address],[place] [address] 07/14/2024 10:27:30 07/14/2024 11:05:16 Health Concerns Section Related Observation LastModified by Organization Detai ls LastModified Time None Recorded Concern Status LastModified by Organization Details LastModified Time None Recorded Advance Directives Directive N: Payers Encounter Date Sequence Insurance Name Policy Number Policy Sandoval Covered Member ID Sandoval Member ID Guarantor Name 06/30/[address] [facility] [id number] Graham Mcclendon [id number] Amy Mcclendno 07/07/[address] [facility] [id number] Graham Mcclendon [id number] Amy Mcclendon 07/07/[address] [facility] [id number] Graham Mcclendon [id number] Amy Mcclendon 07/07/[address] [facility] [id number] Graham Mcclendon [id number] Amy Mcclendon 07/14/[address] [facility] [id number] Graham Mcclendon [id number] Amy Mcclendon OBGyn Episode Ob Episode Information Episode Created Date Number of Fetuses Patient Bloodtype Patient rh Status Prepregnancy Weight lbs Domestic Partner Domestic Partner Phone Father Name Wireless Sales Consultant Status 05/25/20 21 1 CLOSED Fetus Data First Name Last Name Admitted to NICU Weight (g) Sex Living Outcome Pediatric Complications Fetus ID Race Codes Race Delivery Type [id number] Vaginal Delivery Leander Calculation Initial Leander Date Initial Exam Date Initial Exam Provider Initial Ultrasound Date Last Menstrual Period Date Ultra Sound Weeks Gestation 0 Eighteen To Twenty Week Leander Update Ultra Sound Date Fundal Height At Umbil Quickening Date Ultra Sound Latest Weeks Gestation Final Leander Confirmed By Final Leander Confirmed Date Final Leander Date Ultra Sound Latest Days Gestation 0 0 Menstrual History Last Menstrual Date Menses Monthly On Bcp Conception Prior Menses Frequency Hcg Plus Date Menarche Onset Age Delivery Information Delivery Date Delivery Type Labor Anesthesia Weeks Gestation Incision Type Labor Labor Length Hrs Delivered By Post Complications Tubal Sterilization Discharge Date Comments 2 adopted out Discharge Information Feeding Method Contraceptive Method Maternal HG B and HCT Levels Ob Episode Information Episode Created Date Number of Fetuses Patient Bloodtype Patient rh Status Prepregnancy Weight lbs Domestic Partner Domestic Partner Phone Father Name Wireless Sales Consultant Status 11/03/19 22 1 202 CLOSED Fetus Data First Name Last Name Admitted to NICU Weight (g) Sex Living Outcome Pediatric Complications Fetus ID Race Codes Race Delivery Type 2919.99 85 F true Full Term term [id number] Vaginal Delivery Problems Problem Notes CF/SMA NEG1st baby adopted o Sivakumar pt Problem Name Start Date End Date Resolution Snomed Code Not e Migraine 05/25/2021 [id number] stable - relieved with Tylenol Chronic hypertension in obstetric context 5688568 labetalol 100mg bid, ASA, ante testing 32w, deliver 38w Leander Calculation Initial Leander Date Initial Exam Date Initial Exam Provider Initial Ultrasound Date Last Menstrual Period Date Ultra Sound Weeks Gestation 05/13/2022 11/02/2021 09/28/2021 08/06/2021 7 Eighteen To Twenty Week Leander Update Ultra Sound Date Fundal Height At Umbil Quickening Date Ultra Sound Latest Weeks Gestation Final Leander Confirmed By Final Leander Confirmed Date Final Leander Date Ultra Sound Latest Days Gestation 0 [email or web address] 11/02/2021 05/13/20 22 0 Pre- Flowsheet Flowsheet Date 11/02/2021 Hazel Score Blood Edema Fundus Height Fundus Units Glucose Ketones Leukocytes Nitrite Labor Signs Protein Cervic Dilation Cervic Effacement Cervic Station 12 Type Weight in lbs Pre/Post Dialysis Refused Weight 198.641084156428 BP Diastolic BP Location Tested BP Systolic BP Type 82 R arm 125 sitting Fetus Heart Rate Present A 158 Fetus Movement Comments This patient is a 36-year-ol d female presents for initial visit. She is a 2 para 1001. The 1st baby was adopted out. She does not know much about the details of the 1st . She has chronic hypertension and migraine. She is taking 100 mg labetalol b.i.d. for her blood pressure. To start a baby aspirin daily. She was given recommendations on migraine. She is vaccinated For COVID. She has a booster recently. we discussed care in detail. Flowsheet Date 12/07/2021 Hazel Score Blood Edema Fundus Height Fundus Units Glucose Ketones Leukocytes Nitrite Labor Signs Protein Cervic Dilation Cervic Effacement Cervic Station neg none none trace Type Weight in lbs Pre/Post Dialysis Refused Weight 201.765347214738 BP Diastolic BP Location Tested BP Systolic BP Type 75 110 Fetus Heart Rate Present A 145 Fetus Movement A Yes Comments Doing well. Off anxierty med s since May and mood is great! Will start ASA. AFP today. Repap done again today. Cervix is very friable, so if inadequate again due to blood, will repeat pp. Anatomy US next visit. Flowsheet Date 12/31/2021 Hazel Score Blood Edema Fundus Height Fundus Units Glucose Ketones Leukocytes Nitrite Labor Signs Protein Cervic Dilation Cervic Effacement Cervic Station Type Weight in lbs Pre/Post Dialysis Refused BP Diastolic BP Location Tested BP Systolic BP Type Fetus Heart Rate Present Fetus Movement Comments Flowsheet Date 12/31/2021 Hazel Score Blood Edema Fundus Height Fundus Units Glucose Ketones Leukocytes Nitrite Labor Signs Protein Cervic Dilation Cervic Effacement Cervic Station neg none 22 none trace Type Weight in lbs Pre/Post Dialysis Refused Weight 205.467632979477 BP Diastolic BP Location Tested BP Systolic BP Type 86 123 Fetus Heart Rate Present A 155 Fetus Movement A Yes Comments Doing well. Mood good. Ally rivero ASA and labetalol. BP good. Finally got adequate and normal pap. US today anatomy complete and wnl. Will do growth US in 3rd trimester. Also discussed testing at 32w. Delivery at 38. Flowsheet Date 02/01/2022 Hazel Score Blood Edema Fundus Height Fundus Units Glucose Ketones Leukocytes Nitrite Labor Signs Protein Cervic Dilation Cervic Effacement Cervic Station neg none 29 none trace Type Weight in lbs Pre/Post Dialysis Refused Weight 211.523341207482 BP Diastolic BP Location Tested BP Systolic BP Type 85 123 Fetus Heart Rate Present A 140 Fetus Movement A Yes Comments Doing ok, just some muscular rib pain. GCT and growth next. Discuss Tdap next. Ante testing to start at 32w, will schedule. Flowsheet Date 02/15/2022 Hazel Score Blood Edema Fundus Height Fundus Units Glucose Ketones Leukocytes Nitrite Labor Signs Protein Cervic Dilation Cervic Effacement Cervic Station Type Weight in lbs Pre/Post Dialysis Refused BP Diastolic BP Location Tested BP Systolic BP Type Fetus Heart Rate Present Fetus Movement Comments Flowsheet Date 02/15/2022 Hazel Score Blood Edema Fundus Height Fundus Units Glucose Ketones Leukocytes Nitrite Labor Signs Protein Cervic Dilation Cervic Effacement Cervic Station neg trace 29 none trace Type Weight in lbs Pre/Post Dialysis Refused Weight 216.926162432859 BP Diastolic BP Location Tested BP Systolic BP Type 78 116 Fetus Heart Rate Present A 145 Fetus Movement A Yes Comments Doing well, no conerns. Doin g GCT today. Discussed and encouraged Tdap. US today 39%. Flowsheet Date 03/01/2022 Hazel Score Blood Edema Fundus Height Fundus Units Glucose Ketones Leukocytes Nitrite Labor Signs Protein Cervic Dilation Cervic Effacement Cervic Station neg trace 33 none trace Type Weight in lbs Pre/Post Dialysis Refused Weight 219.989193582149 BP Diastolic BP Location Tested BP Systolic BP Type 86 122 Fetus Heart Rate Present A 140 Fetus Movement A Yes Comments Doing well. GCT wnl. Taking iron. Will do Tdap. BP great. Flowsheet Date 03/13/2022 Hazel Score Blood Edema Fundus Height Fundus Units Glucose Ketones Leukocytes Nitrite Labor Signs Protein Cervic Dilation Cervic Effacement Cervic Station Type Weight in lbs Pre/Post Dialysis Refused BP Diastolic BP Location Tested BP Systolic BP Type Fetus Heart Rate Present Fetus Movement Comments Flowsheet Date 03/13/2022 Hazel Score Blood Edema Fundus Height Fundus Units Glucose Ketones Leukocytes Nitrite Labor Signs Protein Cervic Dilation Cervic Effacement Cervic Station neg none none trace Type Weight in lbs Pre/Post Dialysis Refused Weight 221.088522389168 BP Diastolic BP Location Tested BP Systolic BP Type 70 109 Fetus Heart Rate Present Fetus Movement A Yes Comments patient states that having s ome low back pain and swelling. reviewed precautions call for preadmit, discussed pediatricians, efw 39% starts testing next week Flowsheet Date 03/20/2022 Hazel Score Blood Edema Fundus Height Fundus Units Glucose Ketones Leukocytes Nitrite Labor Signs Protein Cervic Dilation Cervic Effacement Cervic Station Type Weight in lbs Pre/Post Dialysis Refused BP Diastolic BP Location Tested BP Systolic BP Type Fetus Heart Rate Present Fetus Movement Comments Flowsheet Date 03/20/2022 Hazel Score Blood Edema Fundus Height Fundus Units Glucose Ketones Leukocytes Nitrite Labor Signs Protein Cervic Dilation Cervic Effacement Cervic Station Type Weight in lbs Pre/Post Dialysis Refused BP Diastolic BP Location Tested BP Systolic BP Type Fetus Heart Rate Present Fetus Movement Comments Flowsheet Date 03/20/2022 Hazel Score Blood Edema Fundus Height Fundus Units Glucose Ketones Leukocytes Nitrite Labor Signs Protein Cervic Dilation Cervic Effacement Cervic Station neg trace none trace Type Weight in lbs Pre/Post Dialysis Refused Weight 224.629027482594 BP Diastolic BP Location Tested BP Systolic BP Type 87 125 Fetus Heart Rate Present A 135 Fetus Movement A Yes Comments Doing well. Anxiety pretty g ood. Tdap and flu shot done. BPP 04/01. Flowsheet Date 03/27/2022 Hazel Score Blood Edema Fundus Height Fundus Units Glucose Ketones Leukocytes Nitrite Labor Signs Protein Cervic Dilation Cervic Effacement Cervic Station Type Weight in lbs Pre/Post Dialysis Refused BP Diastolic BP Location Tested BP Systolic BP Type Fetus Heart Rate Present Fetus Movement Comments Flowsheet Date 03/27/2022 Hazel Score Blood Edema Fundus Height Fundus Units Glucose Ketones Leukocytes Nitrite Labor Signs Protein Cervic Dilation Cervic Effacement Cervic Station Type Weight in lbs Pre/Post Dialysis Refused BP Diastolic BP Location Tested BP Systolic BP Type Fetus Heart Rate Present Fetus Movement Comments Flowsheet Date 03/27/2022 Hazel Score Blood Edema Fundus Height Fundus Units Glucose Ketones Leukocytes Nitrite Labor Signs Protein Cervic Dilation Cervic Effacement Cervic Station neg trace none trace Type Weight in lbs Pre/Post Dialysis Refused Weight 226.745649114307 BP Diastolic BP Location Tested BP Systolic BP Type 71 107 Fetus Heart Rate Present Fetus Movement A Yes Comments patient is having some swell ing. bpp 01/28, obesity, reviewed plan, rec review with dr. regan at next visit. precautions reviewed f/u one week Flowsheet Date 04/03/2022 Hazel Score Blood Edema Fundus Height Fundus Units Glucose Ketones Leukocytes Nitrite Labor Signs Protein Cervic Dilation Cervic Effacement Cervic Station Type Weight in lbs Pre/Post Dialysis Refused BP Diastolic BP Location Tested BP Systolic BP Type Fetus Heart Rate Present Fetus Movement Comments Flowsheet Date 04/03/2022 Hazel Score Blood Edema Fundus Height Fundus Units Glucose Ketones Leukocytes Nitrite Labor Signs Protein Cervic Dilation Cervic Effacement Cervic Station Type Weight in lbs Pre/Post Dialysis Refused BP Diastolic BP Location Tested BP Systolic BP Type Fetus Heart Rate Present Fetus Movement Comments Flowsheet Date 04/03/2022 Hazel Score Blood Edema Fundus Height Fundus Units Glucose Ketones Leukocytes Nitrite Labor Signs Protein Cervic Dilation Cervic Effacement Cervic Station neg trace none trace Type Weight in lbs Pre/Post Dialysis Refused Weight 227.990455364852 BP Diastolic BP Location Tested BP Systolic BP Type 72 107 Fetus Heart Rate Present A 140 Fetus Movement A Yes Comments Doing fine. BPP 04/01. Discu ssed plan. FU weekly. Flowsheet Date 04/10/2022 Hazel Score Blood Edema Fundus Height Fundus Units Glucose Ketones Leukocytes Nitrite Labor Signs Protein Cervic Dilation Cervic Effacement Cervic Station Type Weight in lbs Pre/Post Dialysis Refused BP Diastolic BP Location Tested BP Systolic BP Type Fetus Heart Rate Present Fetus Movement Comments Flowsheet Date 04/10/2022 Hazel Score Blood Edema Fundus Height Fundus Units Glucose Ketones Leukocytes Nitrite Labor Signs Protein Cervic Dilation Cervic Effacement Cervic Station Type Weight in lbs Pre/Post Dialysis Refused BP Diastolic BP Location Tested BP Systolic BP Type Fetus Heart Rate Present Fetus Movement Comments Flowsheet Date 04/10/2022 Hazel Score Blood Edema Fundus Height Fundus Units Glucose Ketones Leukocytes Nitrite Labor Signs Protein Cervic Dilation Cervic Effacement Cervic Station neg trace none trace Type Weight in lbs Pre/Post Dialysis Refused Weight 228.461847360058 BP Diastolic BP Location Tested BP Systolic BP Type 75 115 Fetus Heart Rate Present A 140 Fetus Movement A Yes Comments Doing well. US today 56%, BP P 8/8. GBS and schedule IOL next week. Flowsheet Date 04/17/2022 Hazel Score Blood Edema Fundus Height Fundus Units Glucose Ketones Leukocytes Nitrite Labor Signs Protein Cervic Dilation Cervic Effacement Cervic Station Type Weight in lbs Pre/Post Dialysis Refused BP Diastolic BP Location Tested BP Systolic BP Type Fetus Heart Rate Present Fetus Movement Comments Flowsheet Date 04/17/2022 Hazel Score Blood Edema Fundus Height Fundus Units Glucose Ketones Leukocytes Nitrite Labor Signs Protein Cervic Dilation Cervic Effacement Cervic Station Type Weight in lbs Pre/Post Dialysis Refused BP Diastolic BP Location Tested BP Systolic BP Type Fetus Heart Rate Present Fetus Movement Comments Flowsheet Date 04/17/2022 Hazel Score Blood Edema Fundus Height Fundus Units Glucose Ketones Leukocytes Nitrite Labor Signs Protein Cervic Dilation Cervic Effacement Cervic Station neg trace none trace 1cm 40% -3 Type Weight in lbs Pre/Post Dialysis Refused Weight 228.534826122730 BP Diastolic BP Location Tested BP Systolic BP Type 73 107 Fetus Heart Rate Present A 135 Fetus Movement A Yes Comments Doing well. No labor signs. GBS done and discussed. BP 04/01. Will schedule 38w IOL for cHTN. Last delivery 10 years ago. Flowsheet Date 04/24/2022 Hazel Score Blood Edema Fundus Height Fundus Units Glucose Ketones Leukocytes Nitrite Labor Signs Protein Cervic Dilation Cervic Effacement Cervic Station Type Weight in lbs Pre/Post Dialysis Refused BP Diastolic BP Location Tested BP Systolic BP Type Fetus Heart Rate Present Fetus Movement Comments Flowsheet Date 04/24/2022 Hazel Score Blood Edema Fundus Height Fundus Units Glucose Ketones Leukocytes Nitrite Labor Signs Protein Cervic Dilation Cervic Effacement Cervic Station neg trace none trace 2cm 40% -3 Type Weight in lbs Pre/Post Dialysis Refused Weight 227.850144252951 BP Diastolic BP Location Tested BP Systolic BP Type 76 116 Fetus Heart Rate Present A 135 Fetus Movement A Yes Comments Doing ok. Excited for induct ion Friday night. GBS neg. 2/40/-3. discussed IOL process, RBA, questions answered. Flowsheet Date 04/24/2022 Hazel Score Blood Edema Fundus Height Fundus Units Glucose Ketones Leukocytes Nitrite Labor Signs Protein Cervic Dilation Cervic Effacement Cervic Station Type Weight in lbs Pre/Post Dialysis Refused BP Diastolic BP Location Tested BP Systolic BP Type Fetus Heart Rate Present Fetus Movement Comments Flowsheet Date 05/29/2022 Hazel Score Blood Edema Fundus Height Fundus Units Glucose Ketones Leukocytes Nitrite Labor Signs Protein Cervic Dilation Cervic Effacement Cervic Station Type Weight in lbs Pre/Post Dialysis Refused Weight 208.871182851488 BP Diastolic BP Location Tested BP Systolic BP Type 74 104 Fetus Heart Rate Present Fetus Movement Comments Menstrual History Last Menstrual Date Menses Monthly On Bcp Conception Prior Menses Frequency Hcg Plus Date Menarche Onset Age 0208/06/2021 Genetic Screening And Infection History Question Response Note Mental Retardation/Autism false Patient's Age Will Be 35 Years Or Older At Estim ated Date of Delivery false Thalassemia (Ukrainian, Mongolian, Mediterranean, Or Background): MCV < 80 false Neural Tube Defect (Meningomyelocele, Spina Bifi da, Or Anencephaly) false Congenital Heart Defect false Down Syndrome false Rodrigo-Sachs (eg, Rastafarian, Cajun, Khmer-[place]) f alse Ramon Disease false Sickle Cell Disease Or Trait () false Hemophilia Or Other Blood Disorders false Muscular Dystrophy false Cystic Fibrosis false Christal's Chorea false Intellectual Disability/Autism false If Yes, Was Person Tested For Fragile X? false Other Inherited Genetic Or Chromosomal Disorder false Maternal Metabolic Disorder (eg, Type 1 Diabetes , PKU) false Patient Or Baby's Father Had A Child With Defects Not Listed Above false Recurrent Loss, Or A Stillbirth false Medications (including Suppl ements, Vitamins, Herbs, OTC Drugs), Illicit/Recreational Drugs, Alcohol false If Yes, Agent(s) And Strength/Dosage false Any Other Genetic History false Live With Someone With TB Or Exposed To TB false Patient Or Partner Has History Of Genital Herpes false Rash Or Viral Illness Since Last Menstrual Perio d false History Of STD, Gonorrhea, Chlamydia, HPV, Syphi lis false Other Infection History false History of HIV false History of Hepatitis false Prior GBS-infected child false Hemoglobinopathy Or Carrier false Other Structural Defect false Recent Travel History Outside of Country false Delivery Information Delivery Date Delivery Type Labor Anesthesia Weeks Gestation Incision Type Labor Labor Length Hrs Delivered By Post Complications Tubal Sterilization Discharge Date Comments 2 Induce d Local 38.1 false Domenica Regan MD CHTN Discharge Information Feeding Method Contraceptive Method Maternal HG B and HCT Levels Ob Episode Information Episode Created Date Number of Fetuses Patient Bloodtype Patient rh Status Prepregnancy Weight lbs Domestic Partner Domestic Partner Phone Father Name Wireless Sales Consultant Status 01/20/20 24 1 O Positive 219 OPEN Fetus Data First Name Last Name Admitted to NICU Weight (g) Sex Living Outcome Pediatric Complications Fetus ID Race Codes Race Delivery Type [id number] Problems Problem Notes Problem Name Start Date End Date Resolution Snomed Code Not e Benign hypertension 35980624 controlled with diet, 32 week testing, 38-39 week delivery Body mass index 30+ - obesity [id number] weekly testing 37wks Leander Calculation Initial Leander Date Initial Exam Date Initial Exam Provider Initial Ultrasound Date Last Menstrual Period Date Ultra Sound Weeks Gestation 07/28/2024 01/20/2024 01/20/2024 10/22/2023 13 Eighteen To Twenty Week Leander Update Ultra Sound Date Fundal Height At Umbil Quickening Date Ultra Sound Latest Weeks Gestation Final Leander Confirmed By Final Leander Confirmed Date Final Leander Date Ultra Sound Latest Days Gestation 03/15/20 24 20 [email or web address] 01/20/2024 07/28/19 25 2 Pre-mehran Flowsheet Flowsheet Date 01/20/2024 Hazel Score Blood Edema Fundus Height Fundus Units Glucose Ketones Leukocytes Nitrite Labor Signs Protein Cervic Dilation Cervic Effacement Cervic Station Type Weight in lbs Pre/Post Dialysis Refused Weight 219.813310439196 BP Diastolic BP Location Tested BP Systolic BP Type 84 L arm 128 sitting Fetus Heart Rate Present A 154 Fetus Movement A No Comments this patient is a 38-year-ol d multiparous female at 12 weeks' gestation who presents for initial care. She has a history of term vaginal births. Her medical, surgical, obstetric history is unremarkable. She is vaccinated. She was given precautions recommendations for . We talked about vaccines in . Talked about care in detail. She is having genetic testing. She had a normal 12 week ultrasound. To begin routine care. Flowsheet Date 02/16/2024 Hazel Score Blood Edema Fundus Height Fundus Units Glucose Ketones Leukocytes Nitrite Labor Signs Protein Cervic Dilation Cervic Effacement Cervic Station Type Weight in lbs Pre/Post Dialysis Refused 215.292895192134 BP Diastolic BP Location Tested BP Systolic BP Type 93 L arm 135 sitting Fetus Heart Rate Present A 145 Fetus Movement A No Comments no complaints, no problems, routine care, no contractions, no vaginal bleeding, no loss of fluid, no cramping Flowsheet Date 03/15/2024 Hazel Score Blood Edema Fundus Height Fundus Units Glucose Ketones Leukocytes Nitrite Labor Signs Protein Cervic Dilation Cervic Effacement Cervic Station Type Weight in lbs Pre/Post Dialysis Refused BP Diastolic BP Location Tested BP Systolic BP Type Fetus Heart Rate Present Fetus Movement Comments Flowsheet Date 03/15/2024 Hazel Score Blood Edema Fundus Height Fundus Units Glucose Ketones Leukocytes Nitrite Labor Signs Protein Cervic Dilation Cervic Effacement Cervic Station Type Weight in lbs Pre/Post Dialysis Refused BP Diastolic BP Location Tested BP Systolic BP Type Fetus Heart Rate Present Fetus Movement Comments Flowsheet Date 03/15/2024 Hazel Score Blood Edema Fundus Height Fundus Units Glucose Ketones Leukocytes Nitrite Labor Signs Protein Cervic Dilation Cervic Effacement Cervic Station 20 cm Type Weight in lbs Pre/Post Dialysis Refused 221.304921849976 BP Diastolic BP Location Tested BP Systolic BP Type 82 L arm 130 sitting Fetus Heart Rate Present A 145 Fetus Movement A Yes Comments no complaints, no problems, routine care, no contractions, no vaginal bleeding, no loss of fluid, no cramping Flowsheet Date 04/12/2024 Hazel Score Blood Edema Fundus Height Fundus Units Glucose Ketones Leukocytes Nitrite Labor Signs Protein Cervic Dilation Cervic Effacement Cervic Station neg none none trace Type Weight in lbs Pre/Post Dialysis Refused 222.97418276484 BP Diastolic BP Location Tested BP Systolic BP Type 88 L arm 136 sitting Fetus Heart Rate Present A 145 Fetus Movement A Yes Comments C/o of hip and back pain, di scussed conservative measurements. Good movement. No cramping or bleeding. Discussed GCT and labs for next visit. Otherwise doing well. RTC 4 weeks. Flowsheet Date 05/11/2024 Hazel Score Blood Edema Fundus Height Fundus Units Glucose Ketones Leukocytes Nitrite Labor Signs Protein Cervic Dilation Cervic Effacement Cervic Station neg none none trace Type Weight in lbs Pre/Post Dialysis Refused Weight 226.044050430978 BP Diastolic BP Location Tested BP Systolic BP Type 88 L arm 140 sitting Fetus Heart Rate Present Fetus Movement A Yes Comments Patient c/o of back and hip pains. Good movement. No cramping or bleeding. GCT and labs today. Received COVID and flu vaccines. Discussed tdap vaccine. Discussed hx of cHTN, overall well controlled off medicine, and plan for 32 week testing. RTC 2 weeks. Flowsheet Date 05/28/2024 Hazel Score Blood Edema Fundus Height Fundus Units Glucose Ketones Leukocytes Nitrite Labor Signs Protein Cervic Dilation Cervic Effacement Cervic Station neg none Type Weight in lbs Pre/Post Dialysis Refused 231.551403675750 BP Diastolic BP Location Tested BP Systolic BP Type 80 L arm 146 sitting Fetus Heart Rate Present A 135 Fetus Movement A Yes Comments Patient c/o of back and hip pain. Good movement. No cramping or bleeding. Passed GCT and anemia labs. Will start testing next week for cHTN. Received Tdap vaccine. RTC 1 week. Flowsheet Date 06/04/2024 Hazel Score Blood Edema Fundus Height Fundus Units Glucose Ketones Leukocytes Nitrite Labor Signs Protein Cervic Dilation Cervic Effacement Cervic Station Type Weight in lbs Pre/Post Dialysis Refused BP Diastolic BP Location Tested BP Systolic BP Type Fetus Heart Rate Present Fetus Movement Comments Flowsheet Date 06/04/2024 Hazel Score Blood Edema Fundus Height Fundus Units Glucose Ketones Leukocytes Nitrite Labor Signs Protein Cervic Dilation Cervic Effacement Cervic Station Type Weight in lbs Pre/Post Dialysis Refused BP Diastolic BP Location Tested BP Systolic BP Type Fetus Heart Rate Present Fetus Movement Comments Flowsheet Date 06/04/2024 Hazel Score Blood Edema Fundus Height Fundus Units Glucose Ketones Leukocytes Nitrite Labor Signs Protein Cervic Dilation Cervic Effacement Cervic Station neg none Type Weight in lbs Pre/Post Dialysis Refused Weight 230.085415737324 BP Diastolic BP Location Tested BP Systolic BP Type 83 L arm 126 sitting Fetus Heart Rate Present A 145 Fetus Movement A Yes Comments Doing well. Good movem ent. No cramping or bleeding. BPP 10/10. EFW 33%. Normal YANN. Discussed RSV vaccine. Discussed preadmission. RTC 1 week. Flowsheet Date 06/09/2024 Hazel Score Blood Edema Fundus Height Fundus Units Glucose Ketones Leukocytes Nitrite Labor Signs Protein Cervic Dilation Cervic Effacement Cervic Station Type Weight in lbs Pre/Post Dialysis Refused BP Diastolic BP Location Tested BP Systolic BP Type Fetus Heart Rate Present Fetus Movement Comments Flowsheet Date 06/09/2024 Hazel Score Blood Edema Fundus Height Fundus Units Glucose Ketones Leukocytes Nitrite Labor Signs Protein Cervic Dilation Cervic Effacement Cervic Station Type Weight in lbs Pre/Post Dialysis Refused BP Diastolic BP Location Tested BP Systolic BP Type Fetus Heart Rate Present Fetus Movement Comments Flowsheet Date 06/09/2024 Hazel Score Blood Edema Fundus Height Fundus Units Glucose Ketones Leukocytes Nitrite Labor Signs Protein Cervic Dilation Cervic Effacement Cervic Station neg none Type Weight in lbs Pre/Post Dialysis Refused Weight 228.668180087354 BP Diastolic BP Location Tested BP Systolic BP Type 87 L arm 123 sitting Fetus Heart Rate Present A 155 Fetus Movement A Yes Comments Good movement. No cram ping or bleeding. BPP 10/10. Received RSV vaccine. Would like to avoid epidural, ok for IV meds if needed. Discussed MIL by 2/4 if not laboring prior. RTC 1 week for testing Flowsheet Date 06/14/2024 Hazel Score Blood Edema Fundus Height Fundus Units Glucose Ketones Leukocytes Nitrite Labor Signs Protein Cervic Dilation Cervic Effacement Cervic Station Type Weight in lbs Pre/Post Dialysis Refused BP Diastolic BP Location Tested BP Systolic BP Type Fetus Heart Rate Present Fetus Movement Comments Flowsheet Date 06/14/2024 Hazel Score Blood Edema Fundus Height Fundus Units Glucose Ketones Leukocytes Nitrite Labor Signs Protein Cervic Dilation Cervic Effacement Cervic Station Type Weight in lbs Pre/Post Dialysis Refused BP Diastolic BP Location Tested BP Systolic BP Type Fetus Heart Rate Present Fetus Movement Comments Flowsheet Date 06/14/2024 Hazel Score Blood Edema Fundus Height Fundus Units Glucose Ketones Leukocytes Nitrite Labor Signs Protein Cervic Dilation Cervic Effacement Cervic Station trace trace Type Weight in lbs Pre/Post Dialysis Refused Weight 233.819016138217 BP Diastolic BP Location Tested BP Systolic BP Type 89 L arm 122 sitting Fetus Heart Rate Present A 135 Fetus Movement A Yes Comments Doing well, good movem ent. No cramping or bleeding. BPP 10/10. Scheduled preadmission. BP stable, asymptomatic. RTC 1 week. Flowsheet Date 06/21/2024 Hazel Score Blood Edema Fundus Height Fundus Units Glucose Ketones Leukocytes Nitrite Labor Signs Protein Cervic Dilation Cervic Effacement Cervic Station Type Weight in lbs Pre/Post Dialysis Refused BP Diastolic BP Location Tested BP Systolic BP Type Fetus Heart Rate Present Fetus Movement Comments Flowsheet Date 06/21/2024 Hazel Score Blood Edema Fundus Height Fundus Units Glucose Ketones Leukocytes Nitrite Labor Signs Protein Cervic Dilation Cervic Effacement Cervic Station Type Weight in lbs Pre/Post Dialysis Refused Weight 232.5084010494 BP Diastolic BP Location Tested BP Systolic BP Type 79 111 Fetus Heart Rate Present Fetus Movement Comments Flowsheet Date 06/21/2024 Hazel Score Blood Edema Fundus Height Fundus Units Glucose Ketones Leukocytes Nitrite Labor Signs Protein Cervic Dilation Cervic Effacement Cervic Station trace 140 cm Type Weight in lbs Pre/Post Dialysis Refused 232.07044356125 BP Diastolic BP Location Tested BP Systolic BP Type 79 111 Fetus Heart Rate Present A 140 Fetus Movement A Yes Comments no complaints, no problems, routine care, no contractions, no vaginal bleeding, no loss of fluid, no cramping . BPP -8/10 Flowsheet Date 06/30/2024 Hazel Score Blood Edema Fundus Height Fundus Units Glucose Ketones Leukocytes Nitrite Labor Signs Protein Cervic Dilation Cervic Effacement Cervic Station Type Weight in lbs Pre/Post Dialysis Refused BP Diastolic BP Location Tested BP Systolic BP Type Fetus Heart Rate Present Fetus Movement Comments Flowsheet Date 06/30/2024 Hazel Score Blood Edema Fundus Height Fundus Units Glucose Ketones Leukocytes Nitrite Labor Signs Protein Cervic Dilation Cervic Effacement Cervic Station Type Weight in lbs Pre/Post Dialysis Refused BP Diastolic BP Location Tested BP Systolic BP Type Fetus Heart Rate Present Fetus Movement Comments Flowsheet Date 06/30/2024 Hazel Score Blood Edema Fundus Height Fundus Units Glucose Ketones Leukocytes Nitrite Labor Signs Protein Cervic Dilation Cervic Effacement Cervic Station neg trace Type Weight in lbs Pre/Post Dialysis Refused Weight 232.3701479726 BP Diastolic BP Location Tested BP Systolic BP Type 83 L arm 127 sitting Fetus Heart Rate Present A 140 Fetus Movement A Yes Comments Good movement. No cram ping or vaginal bleeding. Having some hemorrhoids, using Tucks and prep H. GBS collected. Desires MIL at 38 weeks. Will schedule on 07/14. Labor precautions reviewed. RTC 1 week. Flowsheet Date 07/07/2024 Hazel Score Blood Edema Fundus Height Fundus Units Glucose Ketones Leukocytes Nitrite Labor Signs Protein Cervic Dilation Cervic Effacement Cervic Station Type Weight in lbs Pre/Post Dialysis Refused BP Diastolic BP Location Tested BP Systolic BP Type Fetus Heart Rate Present Fetus Movement Comments Flowsheet Date 07/07/2024 Hazel Score Blood Edema Fundus Height Fundus Units Glucose Ketones Leukocytes Nitrite Labor Signs Protein Cervic Dilation Cervic Effacement Cervic Station Type Weight in lbs Pre/Post Dialysis Refused BP Diastolic BP Location Tested BP Systolic BP Type Fetus Heart Rate Present Fetus Movement Comments Flowsheet Date 07/07/2024 Hazel Score Blood Edema Fundus Height Fundus Units Glucose Ketones Leukocytes Nitrite Labor Signs Protein Cervic Dilation Cervic Effacement Cervic Station neg trace Type Weight in lbs Pre/Post Dialysis Refused Weight 231.374167786634 BP Diastolic BP Location Tested BP Systolic BP Type 85 L arm 130 sitting Fetus Heart Rate Present A 150 Fetus Movement A Yes Comments Patient c/o of slight swelli ng in feet. Asymptomatic. Good movement. No cramping or bleeding. MIL scheduled 38 weeks. BPP 10/10. Labor precautions reviewed. Flowsheet Date 07/14/2024 Hazel Score Blood Edema Fundus Height Fundus Units Glucose Ketones Leukocytes Nitrite Labor Signs Protein Cervic Dilation Cervic Effacement Cervic Station Type Weight in lbs Pre/Post Dialysis Refused BP Diastolic BP Location Tested BP Systolic BP Type Fetus Heart Rate Present Fetus Movement Comments Menstrual History Last Menstrual Date Menses Monthly On Bcp Conception Prior Menses Frequency Hcg Plus Date Menarche Onset Age 0510/22/2023 true false Delivery Information Delivery Date Delivery Type Labor Anesthesia Weeks Gestation Incision Type Labor Labor Length Hrs Delivered By Post Complications Tubal Sterilization Discharge Date Comments Discharge Information Feeding Method Contraceptive Method Maternal HG B and HCT Levels
--- OUTSIDE RECORDS SUMMARY | 2024-07-15 20:51 | XMS_ITS | Clinical Summary ---
Author Organization [facility] Address [address] [place] [address] Care Team Providers Care Cook Mayonnaise Name Role Phone Chela Baca MD Primary Care Provider [phone] Chela Baca MD Unavailable Source Comments [facility],non-owned Affiliates and Associated Physician Practices is amultiple site organization consisting of ambulatory clinics and hospital sitesin [place], [place]. This disclosure is being madepursuant to the Care Everywhere program and may not contain all information available regarding this patient. Last updated 18.[facility] Allergies No known active allergies Medications * Be aware that medications may not be up to date on this document. Alwaysverify current medications with the patient. Medication Sig Dispensed Refills Start Date End Date Status Vit-Fe Fumarate-FA ( VITAMINS PLUS PO) Active SUMAtriptan (Imitrex) 100 MG tabletIndications:Sancho navid without aura and without status migrainosus, not intractable Take 1 (one) tablet by mouth daily as needed - may repeat one time for Migraine No more than 2 doses in 24 hours. 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 Continue current treatment regimen. Regular aerobic exercise. Psychological condition will be reassessed in 3 months. I will have her continue her pamelor and I discussed with the patient the need to monitor her symptoms closely and if she develops any suicidal or homicidal ideation, to notify us as well as go to the ED for further evaluation and treatment. She verbalized understanding and stated that she will comply. Hyperlipemia 03/13/2018 Overview (04/23/2021): Last Assessment & Plan: Lipid abnormalities are improving with treatment. Nutritional counseling was provided. and Pharmacotherapy as ordered. Lipids will be reassessed in 6 months. Essential hypertension 04/17/2017 Overview (10/22/2021): Last Assessment & Plan: Hypertension is improving with treatment. Continue current treatment regimen. Dietary sodium restriction. Weight loss. Regular aerobic exercise. Continue current medications. Blood pressure will be reassessed in 3 months. Migraine without aura and wi thout status migrainosus, not intractable 03/05/2017 Overview (04/23/2021): Last Assessment & Plan: Headaches are improving with treatment. Continue current treatment regimen. Advised to keep a headache diary. I will have her continue to follow with Dr. Breaux and notify us if there are any changes. Estimated Date of Delivery Comme nts Yes 07/28/2024 Encounters Date Type Department Care Team Description 05/10/2024 9:00 AM CERTIFIED RETINAL ANGIOGRAPHER Office Visit [facility] - Family Medicine [address] [place] [phone] Vi Khan, PROJECT DEVELOPER-SAFETY SUPERVISOR Wellness examination (Primary Dx); Mixed hyperlipidemia; Class 3 severe obesity due to excess calories with serious comorbidity and body mass index (BMI) of 40.0 to 44.9 in adult (HCC); Migraine without aura and without status migrainosus, not intractable; Seasonal allergic rhinitis, unspecified trigger; 28 weeks gestation of (HCC); Primary hypertension 05/10/2024 Travel from Last 3 Months Immunizations Name Administration Dates Next Due COVID JAIRO PRIMARY 18+YR 11/26/2020 COVID PFIZER 12+YR 30MCG/0.3mL 04/17/2023 COVID PFIZER BIVALENT 12Y+ 30mcg/0.3ML 09/08/2022 Covid Moderna primary monova lent 12+ yr 0.5mL 08/11/2021 FLU VACCINE QUAD IIV4 SPLIT 0.25 ML IM 03/09/2020,05/01/2019 HEP A VACCINE, ADULT 10/27/2017 INFLUENZA VACCINE, QUADR. (F LUZONE; FLULAVAL; FLUARIX; AFLURIA QUADRIVALENT; 6MO+), 0.5 ML (IIV4) 04/17/2023,03/02/2022,04/23/2021, 018 TDAP (7yrs+) 04/23/2021 TDAP, HISTORIC VACCINE 03/02/2022 TYPHOID IM 10/27/2017 Family History Medical History Relation Name Comments Diabetes - Type 2 Maternal Uncle None Known Mother Relation Name Status Comments Maternal Uncle Mother Alive Social History Tobacco Use Types Packs/Day Years Used Date Smoking Tobacco: Never Smokeless Tobacco: Never Alcohol Use Standard Drinks/Week Comments Not Currently 0 (1 standard drink = 0.6 oz pur e alcohol) PHQ-2 Answer Date Recorded Patient Health Questionnaire-2 Score 0 05/10/2024 Estimated Date of Delivery Comme nts Yes 07/28/2024 Sex and Gender Information Value Date Recorded Sex Assigned at Not on file Gender Identity Not on file Sexual Orientation Not on file Last Filed Vital Signs Vital Sign Reading Time Taken Comments Blood Pressure 122/80 05/10/2024 9:05 AM CERTIFIED RETINAL ANGIOGRAPHER Pulse 100 05/10/2024 9:05 AM CERTIFIED RETINAL ANGIOGRAPHER Temperature 36.2 ??C (97.2 ??F) 04/17/2023 2:34 PM CD T Respiratory Rate 16 05/10/2024 9:05 AM CERTIFIED RETINAL ANGIOGRAPHER Oxygen Saturation 99% 05/10/2024 9:05 AM CERTIFIED RETINAL ANGIOGRAPHER Inhaled Oxygen Concentration - - Weight 102.9 kg (226 lb 12.8 oz) 05/10/2024 9:05 AM CERTIFIED RETINAL ANGIOGRAPHER Height 160 cm (5' 3 ) 05/10/2024 9:05 AM CERTIFIED RETINAL ANGIOGRAPHER Body Mass Index 40.18 05/10/2024 9:05 AM CERTIFIED RETINAL ANGIOGRAPHER Plan of Treatment Upcoming Encounters Date Type Department Care Team (Late st Contact Info) Description 11/08/2024 10:20 AM CDT Office Visit [facility] - Family Medicine [address] [place] [address] Chela Baca MD [address] [place], [place] [id number] Health Maintenance Due Date Last Done Comments HEPATITIS B VACCINE (1 of 3 - 19+ 3-dose series) 2006 COVID-19 VACCINE ( season) 2024 04/17/2023, 09/08/2022, 08/11/2021, Additional history exists INFLUENZA VACCINE (#1) 2024 , 03/02/2022, 04/23/2021, Additional history exists OB-ONE HOUR GLUCOSE 04/21/2024 OB-TDAP CURRENT 04/28/2024 03/02/2022, 06/2020 OB-RHOGAM INJECTION 05/05/2024 DEPRESSION SCREENING 06/23/2024 05/10/2024, 04/17/20 23 OB-GROUP B STREP SCREEN 06/23/2024 PAP SMEAR 12/22/2026 12/23/2023, 0406/2021, 10/01/2021, Additional history exists DTAP/TDAP/TD VACCINES (3 - Td or Tdap) 03/02/2032 03/02/2022, 04/23/2021 ZOSTER VACCINE (1 of 2) 2037 HEPATITIS C SCREENING Completed 04/24/2021 HIV SCREENING Completed 04/24/2021 HIB VACCINE Aged Out No longer eligi ble based on patient's age to complete this topic HPV VACCINE Aged Out No longer eligi ble based on patient's age to complete this topic MENINGOCOCCAL (Group B) VACCINE Aged Out No longer eligible based on patient's age to complete this topic MENINGOCOCCAL VACCINE Aged Out No kiran bob eligible based on patient's age to complete this topic PNEUMOCOCCAL VACCINE Aged Out No long er eligible based on patient's age to complete this topic Respiratory Syncytial Virus (RSV) Vaccine Pt: or over 60 yrs (No Doses Required) Completed Procedures Procedure Name Priority Date/Time Associated Diagnosis Comments TSH REFLEX FREE T4 Routine 05/11/2024 12 :03 PM CERTIFIED RETINAL ANGIOGRAPHER HEPATITIS C ANTIBODY Routine 04/24/2021 8:45 AM CDT Need for hepatitis C screening test HIV-1 HIV-2 ANTIBODY + HIV P24 AG PANEL Routine 04/24/2021 8:45 AM CDT Screening for HIV without presence of risk factors from Last 3 Months or Most Recently Relevant to Health Maintenance Results * TSH REFLEX FREE T4 (05/11/2024 12:03 PM CERTIFIED RETINAL ANGIOGRAPHER) Pathologist [facility] TSH 1.710 0.450 - 4.500 uIU/mL [facility] ACCOUNT BILL 05/11/2024 12:0 3 PM CERTIFIED RETINAL ANGIOGRAPHER 05/11/2024 Narrative [facility] ACCOUNT BILL - 05/12/2024 8:09 AM CERTIFIED RETINAL ANGIOGRAPHER Performed at: ??01 - [facility] [address] ??[id number] [employer]point Pens Assembler: Diogenes Mccollum PhD, Phone: ??[phone] Vi Khan APRN-SAFETY SUPERVISOR LAB - CHEMISTR Y ORDERABLES [facility] ACCOUNT BILL [address] [place] [address] * HIV-1 HIV-2 ANTIBODY + HIV P24 AG PANEL (04/24/2021 8:45 AM CDT) HIV Screen 4th Generation w Reflex Non Reactive Non Reactive [facility] ACCOUNT BILL Comment:FASTING Blood BLOOD SPECIMEN / Unknown 04/24/2021 8:45 AM CDT 04/24/2021 Narrative Resulting Agency Comment Lab Testing performed at: [facility] [address] ??[facility] [id number] Riya Baer MD LAB - CHEMISTRY [facility] Performing Organization Address City/[facility] Co de Phone Number [facility] ACCOUNT BILL [address] [place] [address] * HEPATITIS C ANTIBODY (04/24/2021 8:45 AM CDT) Hepatitis C Antibody Non Reactive Non Reactive [facility] ACCOUNT BILL Comment: Non Reactive - Antibodies to Hepatitis C virus (HCV) were no t detected, result does not exclude early acute HCV infection. FASTING Blood BLOOD SPECIMEN / Unknown 04/24/2021 8:45 AM CDT 04/24/2021 Narrative Resulting Agency Comment Lab Testing performed at: [facility] [place] [address] [address] ?? [facility] [id number] Riya Baer MD LAB - CHEMISTRY [facility] Performing Organization Address City/[facility] Co de Phone Number [facility] ACCOUNT BILL [address] [place] [address] from Last 3 Months or Most Recently Relevant to Health Maintenance Care Teams Cook Mayonnaise Relationship Specialty Start Date End Date Chela Baca MD [address] [place] [address] PCP - General Family Medicine 04/17/23 Chela Baca MD [address] [place] [address] PCP - [facility] 07/24/23
--- OUTSIDE RECORDS SUMMARY | 2024-07-15 20:51 | XMS_ITS | Referral Summary ---
Author Organization [facility] Address [address] [place] [address] Care Team Providers Care Candle Molder Hand Name Role Phone Chela Baca MD Primary Care Provider [phone] Chela Baca MD Unavailable [phone] Source Comments [facility],non-owned Affiliates and Associated Physician Practices is amultiple site organization consisting of ambulatory clinics and hospital sitesin [place], [place], [place] and [place]. This disclosure is being madepursuant to the Care Everywhere program and may not contain all information available regarding this patient. Last updated 18.[facility] Encounters Date Type Department Care Team Description 05/10/2024 Travel 05/10/2024 9:00 AM FOOD SERVICE CASHIER Office Visit [facility] - Family Medicine [address] [place] [phone] Vi Khan, UNIVERSITY DEMONSTRATOR-TECHNICAL SUPPORT DIRECTOR Wellness examination (Primary Dx); Mixed hyperlipidemia; Class 3 severe obesity due to excess calories with serious comorbidity and body mass index (BMI) of 40.0 to 44.9 in adult (HCC); Migraine without aura and without status migrainosus, not intractable; Seasonal allergic rhinitis, unspecified trigger; 28 weeks gestation of (HCC); Primary hypertension from Last 3 Months Allergies No known active allergies Medications * [...] Date of Delivery Comme nts Yes 07/28/2024 Immunizations Name Administration Dates Next Due COVID [...] TDAP, HISTORIC VACCINE 03/02/2022 TYPHOID IM 10/27/2017 Social History Tobacco Use Types Packs/Day Years [...] Comments Blood Pressure 122/80 05/10/2024 9:05 AM FOOD SERVICE CASHIER Pulse 100 05/10/2024 9:05 AM FOOD SERVICE CASHIER Temperature 36.2 ??C (97.2 ??F) 04/17/2023 2:34 PM CD T Respiratory Rate 16 05/10/2024 9:05 AM FOOD SERVICE CASHIER Oxygen Saturation 99% 05/10/2024 9:05 AM FOOD SERVICE CASHIER Inhaled Oxygen Concentration - - Weight 102.9 kg (226 lb 12.8 oz) 05/10/2024 9:05 AM FOOD SERVICE CASHIER Height 160 cm (5' 3 ) 05/10/2024 9:05 AM FOOD SERVICE CASHIER Body Mass Index 40.18 05/10/2024 9:05 AM FOOD SERVICE CASHIER Plan of Treatment Upcoming Encounters Date Type Department Care Team (Late st Contact Info) Description 11/08/2024 10:20 AM CDT Office Visit [facility] - Family Medicine [address] [place] [address] Chela Baca MD [address] [place] [address] Procedures Procedure Name Priority Date/Time Associated Diagnosis Comments TSH REFLEX FREE T4 Routine 05/11/2024 12 :03 PM FOOD SERVICE CASHIER HEPATITIS C ANTIBODY Routine 04/24/2021 8:45 AM CDT Need for hepatitis C screening test HIV-1 HIV-2 ANTIBODY + HIV P24 AG PANEL Routine 04/24/2021 8:45 AM CDT Screening for HIV without presence of risk factors from Last 3 Months or Most Recently Relevant to Health Maintenance Results * TSH REFLEX FREE T4 (05/11/2024 12:03 PM FOOD SERVICE CASHIER) TSH 1.710 0.450 - 4.500 uIU/mL [facility] ACCOUNT BILL 05/11/2024 12:0 3 PM FOOD SERVICE CASHIER 05/11/2024 Narrative [facility] ACCOUNT BILL - 05/12/2024 8:09 AM FOOD SERVICE CASHIER Performed at: ??01 - [facility] [address] ??[id number] Agency Owner: Diogenes Mccollum PhD, Phone: ??[phone] Vi Khan UNIVERSITY DEMONSTRATOR-TECHNICAL SUPPORT DIRECTOR LAB - CHEMISTR Y ORDERABLES [facility] ACCOUNT BILL [address] [place] [address] * HIV-1 HIV-2 ANTIBODY + HIV P24 AG PANEL (04/24/2021 8:45 AM CDT) HIV Screen 4th Generation w Reflex Non Reactive Non Reactive [facility] ACCOUNT BILL Comment:FASTING Blood BLOOD SPECIMEN / Unknown 04/24/2021 8:45 AM CDT 04/24/2021 Narrative Resulting Agency Comment Lab Testing performed at: [facility] [place] [address] [facility] ??[facility] [id number] Riya Baer MD LAB - CHEMISTRY [facility] Performing Organization Address [facility] Co de Phone Number [facility] ACCOUNT BILL [address] [place] [address] * HEPATITIS C ANTIBODY (04/24/2021 8:45 AM CDT) Hepatitis C Antibody Non Reactive Non Reactive [facility] ACCOUNT BILL Comment: Non Reactive - Antibodies to Hepatitis C virus (HCV) were no t detected, result does not exclude early acute HCV infection. FASTING Blood BLOOD SPECIMEN / Unknown 04/24/2021 8:45 AM CDT 04/24/2021 Narrative Resulting Agency Comment Lab Testing performed at: [place] [address] [facility] ?? [facility] [id number] Riya Baer MD LAB - CHEMISTRY [facility] ACCOUNT BILL [address] [place] [address] from Last 3 Months or Most Recently Relevant to Health Maintenance Care Teams Candle Molder Hand Relationship Specialty Start Date End Date Chela Baca MD [address] [place] [address] PCP - General Family Medicine 04/17/23 Chela Baca MD [address] [place] [address] PCP - Attributed-[facility] Commercial 07/24/23
--- OUTSIDE RECORDS SUMMARY | 2024-07-15 20:51 | XMS_ITS | Patient Health Summary ---
Author Organization [facility] Address [address] [place] [address] Care Team Providers Care Engineering Document Control Clerk Name Role Phone Chela Baca MD Primary Care Provider [phone] Chela Baca MD Unavailable [phone] Note from [facility],non-owned Affiliates and Associated Physician Practices is amultiple site organization consisting of ambulatory clinics and hospital sitesin [place], [place], [place] and [place]. This disclosure is being madepursuant to the Care Everywhere program and may not contain all information available regarding this patient. Last updated 18.[facility] Allergies No known active allergies Medications * Be aware that medications may not be up to date on this document. Alwaysverify current medications with the patient. * Vit-Fe Fumarate-FA ( VITAMINS PLUS PO) * SUMAtriptan (Imitrex) 100 MG tablet(Started 02/09/2024) Take 1 (one) tablet by mouth daily as needed - may repeat one time for Migraine No more than 2 doses in 24 hours. 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 2023 11/02/2021 Severe obesity (BMI >= 40) 10/22/2021 Anxiety 05/24/2021 Migraine 05/24/2021 Non-seasonal allergic rhinitis 04/23/2021 Anxiety and depression 09/10/2018 Hyperlipemia 03/13/2018 Essential hypertension 04/17/2017 Migraine without aura and wi thout status migrainosus, not intractable 03/05/2017 Immunizations * COVID JAIRO PRIMARY 18+YR(Given 11/26/2020) * COVID PFIZER 12+YR 30MCG/0.3mL(Given 04/17/2023) * COVID PFIZER BIVALENT 12Y+ 30mcg/0.3ML(Given 09/08/2022) * Covid Moderna primary monovalent 12+ yr 0.5mL(Given 08/11/2021) * FLU VACCINE QUAD IIV4 SPLIT 0.25 ML IM(Given 03/09/2020, 05/01/2019) * HEP A VACCINE, ADULT(Given 10/27/2017) * INFLUENZA VACCINE, QUADR. (FLUZONE; FLULAVAL; FLUARIX; AFLURIA QUADRIVALENT; 6MO+), 0.5 ML (IIV4)(Given 04/17/2023, 03/02/2022, 04/23/2021, 04/04/2018) * TDAP (7yrs+)(Given 04/23/2021) * TDAP, HISTORIC VACCINE(Given 03/02/2022) * TYPHOID IM(Given 10/27/2017) Social History Tobacco Use Types Packs/Day Years [...] Comments Blood Pressure 122/80 05/10/2024 9:05 AM [employer] Pulse 100 05/10/2024 9:05 AM [employer] Temperature 36.2 ??C (97.2 ??F) 04/17/2023 2:34 PM CD T Respiratory Rate 16 05/10/2024 9:05 AM [employer] Oxygen Saturation 99% 05/10/2024 9:05 AM [employer] Inhaled Oxygen Concentration - - Weight 102.9 kg (226 lb 12.8 oz) 05/10/2024 9:05 AM [employer] Height 160 cm (5' 3 ) 05/10/2024 9:05 AM [employer] Body Mass Index 40.18 05/10/2024 9:05 AM [employer] Procedures * TSH REFLEX FREE T4(Performed 05/11/2024) * LIPID PROFILE(Performed 05/08/2023) Performed for Mixed hyperlipidemia, Essential hypertension, Health maintenance examination * COMPREHENSIVE METABOLIC PANEL(Performed 05/08/2023) Performed for Essential hypertension, Health maintenance examination * CBC W AUTO DIFFERENTIAL(Performed 05/08/2023) Performed for Essential hypertension, Health maintenance examination * LIPID PROFILE(Performed 04/24/2021) Performed for Primary hypertension, Pure hypercholesterolemia * HIV-1 HIV-2 ANTIBODY + HIV P24 AG PANEL(Performed 04/24/2021) Performed for Screening for HIV without presence of risk factors * HEPATITIS C ANTIBODY(Performed 04/24/2021) Performed for Need for hepatitis C screening test Results * TSH REFLEX FREE T4 (05/11/2024 12:03 PM [employer]) TSH 1.710 0.450 - 4.500 uIU/mL [facility] ACCOUNT BILL 05/11/2024 12:0 3 PM [employer] 05/11/2024 Narrative [facility] ACCOUNT BILL - 05/12/2024 8:09 AM [employer] Performed at: ??01 - [facility] [address] ??[id number] Rotating Equipment Engineer: Diogenes Mccollum PhD, Phone: ??[phone] Vi Khan WATER PUMP ASSEMBLER-CONSTRUCTION ACCOUNTANT LAB - CHEMISTR Y ORDERABLES Performing Organization Address City/State/[facility] Co de Phone Number [facility] ACCOUNT BILL [address] [place] [address] * CBC WITH DIFFERENTIAL (05/08/2023 9:46 AM [employer]) WBC 7.8 3.4 - 10.8 x10E3/uL [facility] ACCOUNT BILL RBC 4.94 3.77 - 5.28 x10E6/uL [facility] ACCOUNT BILL Hemoglobin 14.6 11.1 - 15.9 g/dL [facility] ACCOUNT BILL Hematocrit 44.2 34.0 - 46.6 % [facility] ACCOUNT BILL MCV 90 79 - 97 fL [facility] ACCOUNT BILL MCH 29.6 26.6 - 33.0 pg [facility] ACCOUNT BILL MCHC 33.0 31.5 - 35.7 g/dL [facility] ACCOUNT BILL RDW 12.1 11.7 - 15.4 % [facility] ACCOUNT BILL Platelet Count 215 150 - 450 x10E3/uL [facility] ACCOUNT BILL Granulocytes % 66 Not Estab. % [facility] ACCOUNT BILL Lymphocytes % 20 Not Estab. % [facility] ACCOUNT BILL Monocytes % 10 Not Estab. % [facility] ACCOUNT BILL Eosinophils % 3 Not Estab. % [facility] ACCOUNT BILL Basophils % 1 Not Estab. % [facility] ACCOUNT BILL Immature Cells NOT AVAILABLE [facility] ACCOUNT BILL Comment:Result cannot be obt ained for this observation. Granulocytes Absolute 5.1 1.4 - 7.0 x10E3/uL [facility] ACCOUNT BILL Lymphocytes Absolute 1.6 0.7 - 3.1 x10E3/uL [facility] ACCOUNT BILL Monocytes Absolute 0.8 0.1 - 0.9 x10E3/uL [facility] ACCOUNT BILL Eosinophils Absolute 0.3 0.0 - 0.4 x10E3/uL [facility] ACCOUNT BILL Basophils Absolute 0.1 0.0 - 0.2 x10E3/uL [facility] ACCOUNT BILL Immature Granulocytes 0 Not Estab. % [facility] ACCOUNT BILL Immature Granulocytes Absolute 0.0 0.0 - 0.1 x10E3/uL [facility] ACCOUNT BILL nRBC NOT AVAILABLE [facility] ACCOUNT BILL Comment:Result cannot be obt ained for this observation. Comment Hematology NOT AVAILABLE [facility] ACCOUNT BILL Comment: FASTING Result cannot be obtained for this observation. Blood BLOOD SPECIMEN / Unknown 05/08/2023 9:46 AM [employer] 05/08/2023 Narrative Resulting Agency Comment [facility]: [facility] [address] [facility] [id number] Chela Baca MD LAB - HEMATOLOGY ORD ERABLES [facility] ACCOUNT BILL [address] [place] [address] * COMPREHENSIVE METABOLIC PANEL (05/08/2023 9:46 AM [employer]) Glucose 92 70 - 99 mg/dL [facility] ACCOUNT BILL BUN 13 6 - 20 mg/dL [facility] ACCOUNT BILL Creatinine 0.92 0.57 - 1.00 mg/dL [facility] ACCOUNT BILL eGFR by CKD-EPI 83 >59 mL/min/1.7 3 [facility] ACCOUNT BILL BUN/Creatinine Ratio 14 9 - 23 [facility] ACCOUNT BILL Sodium 141 134 - 144 mmol/L [facility] ACCOUNT BILL Potassium 4.2 3.5 - 5.2 mmol/L [facility] ACCOUNT BILL Chloride 106 96 - 106 mmol/L [facility] ACCOUNT BILL CO2 21 20 - 29 mmol/L [facility] ACCOUNT BILL Calcium 9.2 8.7 - 10.2 mg/dL [facility] ACCOUNT BILL Protein Total 6.4 6.0 - 8.5 g/dL [facility] ACCOUNT BILL Albumin 4.3 3.9 - 4.9 g/dL [facility] ACCOUNT BILL Globulin Total 2.1 1.5 - 4.5 g/dL [facility] ACCOUNT BILL Albumin/Globulin Ratio 2.0 1.2 - 2.2 [facility] ACCOUNT BILL Bilirubin Total 0.9 0.0 - 1.2 mg/dL [facility] ACCOUNT BILL Alkaline Phosphatase 77 44 - 121 IU/L [facility] ACCOUNT BILL AST 13 0 - 40 IU/L [facility] ACCOUNT BILL ALT 15 0 - 32 IU/L [facility] ACCOUNT BILL Comment:FASTING Blood BLOOD SPECIMEN / Unknown 05/08/2023 9:46 AM [employer] 05/08/2023 Narrative Resulting Agency Comment Lab Testing performed at: [facility] ??[facility] [id number] Chela Baca MD LAB - CHEMISTRY RANDAL [facility] ACCOUNT BILL [address] [place] [address] * (ABNORMAL) LIPID PROFILE (05/08/2023 9:46 AM [employer]) Only the most recent of2 resultswithin the time period is included. Cholesterol 242(H) 100 - 199 mg/dL [facility] ACCOUNT BILL Triglycerides 158(H) 0 - 149 mg/dL [facility] ACCOUNT BILL HDL Cholesterol 55 >39 mg/dL [facility] ACCOUNT B[facility] VLDL Calculated 29 5 - 40 mg/dL [facility] ACCOUNT BILL LDL Calculated 158(H) 0 - 99 mg/dL [facility] ACCOUNT BILL Comment NOT AVAILABLE [facility] ACCOUNT BILL Comment: FASTING Result cannot be obtained for this observation. Blood BLOOD SPECIMEN / Unknown 05/08/2023 9:46 AM [employer]ER 05/08/2023 Narrative Resulting Agency Comment Lab Testing performed at: [facility] [address] ??[facility] [id number] Chela Baca MD LAB - CHEMISTRY RANDAL [facility] Performing Organization Address City/[facility]/ZIP Co de Phone Number [facility] ACCOUNT BILL [address] [place] [address] * HIV-1 HIV-2 ANTIBODY + HIV P24 AG PANEL (04/24/2021 8:45 AM CDT) HIV Screen 4th Generation w Reflex Non Reactive Non Reactive [facility] ACCOUNT BILL Comment:FASTING Blood BLOOD SPECIMEN / Unknown 04/24/2021 8:45 AM CDT 04/24/2021 Narrative Resulting Agency Comment Lab Testing performed at: [facility] [address] ??[facility] [id number] Riya Baer MD LAB - CHEMISTRY RANDAL [facility] Performing Organization Address City/[facility]/ZIP Co de Phone Number [facility] ACCOUNT BILL [address] [place] [address] * HEPATITIS C ANTIBODY (04/24/2021 8:45 AM CDT) Hepatitis C Antibody Non Reactive Non Reactive [facility] ACCOUNT BILL Comment: Non Reactive - Antibodies to Hepatitis C virus (HCV) were no t detected, result does not exclude early acute HCV infection. FASTING Blood BLOOD SPECIMEN / Unknown 04/24/2021 8:45 AM CDT 04/24/2021 Narrative Resulting Agency Comment Lab Testing performed at: [facility] [place] [address] [address] ?? [facility] [id number] Riya Baer MD LAB - CHEMISTRY RANDAL [place]as Organization Address City/State/ZIP Co de Phone Number [facility] ACCOUNT [place]ILL [place] [address] Care Teams Engineering Document Control Clerk Relationship Specialty Start Date End Date Chela Baca MD [address] [place] [address] PCP - General Family Medicine 04/17/23 Chela Baca MD [address] [place] [address] PCP - Attributed-[facility] Commercial 07/24/23
[2024-07-16 09:42] VITALS: BP 123/87; PULSE 84; RESP 18; TEMP 36.9; O2SAT 100
== END 2024-07-15 11:56 | disposition home or self-care (01) | DRG 807 ==
LOC: ANHOB2 07-15 10:37 → ANHLDR 07-16 09:42
PROVIDERS: Admitting Provider Obstetrics & Gynecology; Visit Provider Obstetrics & Gynecology
DX: O10.92 Unspecified pre-existing hypertension complicating childbirth (principal); Z37.0 Single live birth; Z3A.38 38 weeks gestation of pregnancy
CPT/HCPCS: 36415; 85014; 85018; 85025; 86592; 86703; 86850; 86900; 86901; A9270; G0432; J2405; J2590; J3010; J7120